=== PATIENT | male | born 1955 | race Caucasian/White ===

== ENCOUNTER 2018-05-23 14:50 | Inpatient (IN) | payer MEDICAID ==
[~2018-05-23] VITALS: Ht 182.9 cm; Wt 92.2 kg
[~2018-05-23 14:50] MED LIST: ATOR40TA78 PO; INSU100I18 SQ-INSULIN; INSU100I28 SQ-INSULIN; LISI-167 PO; METO10TA82 PO; PANT40TA3 PO; SUCR1ORA11 PO
[2018-05-23] MEDS ORDERED: SODIUM CHLORIDE 0.9% 1,000ML IVBOLUS ONE (15:00)
[2018-05-23 15:26] LABS: BASOPHILS # (AUTO) 0.04 x10^3/uL (0-0.1); BASOPHILS % (AUTO) 0 % (0-1); EOSINOPHILS # (AUTO) 0.09 x10^3/uL (0-0.4); EOSINOPHILS % (AUTO) 1 % (1-7); LYMPHOCYTES % (AUTO) 11 % (22-44); MD NO; MEAN CORPUSCULAR HEMOGLOBIN 31.1 pg (27.5-34.5); MEAN CORPUSCULAR HGB CONC 33.8 g/dL (33.2-36.2); MEAN CORPUSCULAR VOLUME 91.8 fL (81-97); MEAN PLATELET VOLUME 8.1 fL (7.4-10.4); MONOCYTES # (AUTO) 0.82 x10^3/uL (0.2-0.8); MONOCYTES % (AUTO) 7 % (2-9); NEUTROPHILS # (AUTO) 9.39 x10^3/uL (1.8-6.8); NEUTROPHILS % (AUTO) 81 % (42-75); PLATELET COUNT 255 x10^3/uL (130-400); RED BLOOD COUNT 4.55 x10^6/uL (4.38-5.82); RED CELL DISTRIBUTION WIDTH 13.9 % (9.4-14.8)
[2018-05-23 15:35] LABS: ALBUMIN 3.4 g/dL (3.4-5.0); ANION GAP 8 mmol/L (5-15); CHLORIDE 101 mmol/L (98-107); CREATININE 1.84 mg/dL (0.7-1.3)
[2018-05-23] MEDS ORDERED: INSULIN REGULAR 100 UNITS/ML, 3ML VIAL ONE (16:25)
[2018-05-23] MEDS ORDERED: AMPICILLIN/SULBACTAM 3 GM in SODIUM CHLORIDE 0.9% 100 ML IV ONE (16:30)
[2018-05-23] MEDS ORDERED: INSULIN REGULAR 100 UNITS/ML, 3ML VIAL IVPush ONE (16:30)
[2018-05-23] MEDS ORDERED: VANCOMYCIN PER PHARMACY MC PRN ×2 (16:30→17:30)
[2018-05-23] MEDS ORDERED: VANCOMYCIN 2,000 MG in SODIUM CHLORIDE 0.9% 500 ML IV ONE (16:30)
[2018-05-23] MEDS ORDERED: SODIUM CHLORIDE 0.9% 1,000 ML IV SCH (17:13)
[2018-05-23] MEDS ORDERED: DOCUSATE 100 MG CAPSULE PO PRN (17:30)
[2018-05-23] MEDS ORDERED: GLUCAGON 1 MG IM PRN (17:30)
[2018-05-23] MEDS ORDERED: hydrALAzine 20 MG/ML, 1ML IVPush PRN (17:30)
[2018-05-23] MEDS ORDERED: SODIUM CHLORIDE 0.9%, 500ML IVBOLUS ONE ×2 (17:30→19:00)
[2018-05-23] MEDS ORDERED: POLYETHYLENE GLYCOL 17 GM PACKET PO PRN (17:30)
[2018-05-23] MEDS ORDERED: ACETAMINOPHEN 325 MG TABLET PO PRN (17:30)
[2018-05-23] MEDS ORDERED: PHARMACY MAY ADJ FOR RENAL FX MC PRN (17:30)
[2018-05-23] MEDS ORDERED: DEXTROSE 50%, 50ML SYRINGE IVPush PRN (17:30)
[2018-05-23] MEDS ORDERED: morphine SULFATE 10 MG/ML, 1ML IVPush PRN (17:30)
[2018-05-23] MEDS: INSULIN LISPRO 100 UNITS/ML, PEN SQ-INSULIN SCH ×2 (17:30→21:34)
[2018-05-23] MEDS ORDERED: BISACODYL 10 MG SUPP PR PRN (17:30)
[2018-05-23] MEDS ORDERED: DEXTROSE 4 GM TAB.CHEW PO PRN (17:30)
[2018-05-23 17:59] LABS: INTERNATIONAL NORMALIZED RATIO 1.06 (0.93-1.1); PROTHROMBIN TIME 10.9 Seconds (9.6-11.5)
[2018-05-23 18:29] LABS: HCT (SEDRATE) 41.8 % (39.2-51.8)
[2018-05-23 18:30] LABS: HEMOGLOBIN A1C 10.4 % (4.2-6.3)
[2018-05-23] MEDS ORDERED: PHARMACOKINETIC CONSULTATION MC ONE (19:00)
[2018-05-23] MEDS ORDERED: PHARMACOKINETIC MONITORING MC PRN (19:00)
[2018-05-23 19:24] LABS: C-REACTIVE PROTEIN, QUANT 7.6 mg/dL (0.02-0.49); THYROID STIMULATING HORMONE 1.31 mIU/L (0.358-3.740)
[2018-05-23 19:40] VITALS: BP 162/97
[2018-05-23] MEDS ORDERED: SUCRALFATE 1 GM/10 ML UDC ONE (21:27)
[2018-05-23 21:32] LABS: CHLORIDE,URINE RANDOM 71 mmol/L; POTASSIUM,URINE RANDOM 33 mmol/L; SODIUM,URINE RANDOM 66 mmol/L
[2018-05-23] MEDS: FAMOTIDINE 20 MG/2 ML IVPush SCH (21:32)
[2018-05-23] MEDS: ATORVASTATIN 40 MG TABLET PO SCH (21:32)
[2018-05-23] MEDS: SODIUM CHLORIDE FLUSH 10ML SYR IVF SCH (21:32)
[2018-05-23] MEDS: INSULIN GLARGINE 100 UNITS/ML, PEN SQ-INSULIN SCH (21:34)
[2018-05-23] MEDS: SUCRALFATE 1 GM TABLET PO SCH (21:44)
[2018-05-23 22:05] LABS: MICROSCOPIC INDICATED
[2018-05-23 22:22] LABS: CULTURE INDICATED? NO
[2018-05-23] MEDS ORDERED: D5%-0.9% NACL 1,000 ML IV SCH (23:30)
[2018-05-23] MEDS: PIPERACILLIN/TAZO 2.25 GM in SODIUM CHLORIDE 0.9% 50 ML IV SCH ×2 (23:30→23:32)
[2018-05-24] VITALS (9 sets, daily range): BP systolic 147–174; BP diastolic 89–111
[2018-05-24 04:53] LABS: ALBUMIN 2.6 g/dL (3.4-5.0); ANION GAP 8 mmol/L (5-15); CALCIUM 8.1 mg/dL (8.5-10.1); CHLORIDE 109 mmol/L (98-107)
[2018-05-24 04:59] LABS: ALANINE AMINOTRANSFERASE 13 U/L (12-78); ALKALINE PHOSPHATASE 75 U/L (45-117); BASOPHILS # (AUTO) 0.04 x10^3/uL (0-0.1); BASOPHILS % (AUTO) 1 % (0-1); BILIRUBIN,TOTAL 0.6 mg/dL (0.2-1.0); CHOL/HDL RATIO 5.6; CHOLESTEROL, TOTAL 214 mg/dL (140-239); CREATININE 1.13 mg/dL (0.7-1.3); EOSINOPHILS # (AUTO) 0.21 x10^3/uL (0-0.4); EOSINOPHILS % (AUTO) 3 % (1-7); HDL CHOL % 18 % (26-37); HDL CHOLESTEROL (DIRECT) 38 mg/dL (40-60); LDL CHOLESTEROL,CALCULATED 155 mg/dL (54-169); LDL/HDL RATIO 4.1 (0.5-3.0); LYMPHOCYTES # (AUTO) 1.92 x10^3/uL (1-3.4); LYMPHOCYTES % (AUTO) 23 % (22-44); MD NO; MEAN CORPUSCULAR HEMOGLOBIN 30.5 pg (27.5-34.5); MEAN CORPUSCULAR HGB CONC 33.7 g/dL (33.2-36.2); MEAN CORPUSCULAR VOLUME 90.4 fL (81-97); MEAN PLATELET VOLUME 7.9 fL (7.4-10.4); MONOCYTES # (AUTO) 0.86 x10^3/uL (0.2-0.8); MONOCYTES % (AUTO) 10 % (2-9); NEUTROPHILS # (AUTO) 5.52 x10^3/uL (1.8-6.8); NEUTROPHILS % (AUTO) 65 % (42-75); PLATELET COUNT 224 x10^3/uL (130-400); RED BLOOD COUNT 4.15 x10^6/uL (4.38-5.82); RED CELL DISTRIBUTION WIDTH 13.5 % (9.4-14.8); TOTAL PROTEIN 6.5 g/dL (6.4-8.2); TRIGLYCERIDES 104 mg/dL (50-200); VLDL CHOLESTEROL 21 mg/dL (0-25)
[2018-05-24] MEDS: PIPERACILLIN/TAZO 2.25 GM in SODIUM CHLORIDE 0.9% 50 ML IV SCH (05:27)
[2018-05-24] MEDS ORDERED: SODIUM CHLORIDE 0.9% 1,000 ML IV SCH (07:00)
[2018-05-24] MEDS: FAMOTIDINE 20 MG/2 ML IVPush SCH ×2 (07:31→20:34)
[2018-05-24] MEDS: NEUTRA PHOS K 250 MG TABLET PO SCH ×2 (07:32→20:34)
[2018-05-24] MEDS: SUCRALFATE 1 GM TABLET PO SCH ×4 (07:32→20:34)
[2018-05-24] MEDS: INSULIN GLARGINE 100 UNITS/ML, PEN SQ-INSULIN SCH ×2 (07:34→20:52)
[2018-05-24] MEDS: INSULIN LISPRO 100 UNITS/ML, PEN SQ-INSULIN SCH ×4 (07:35→20:51)
[2018-05-24] MEDS: SODIUM CHLORIDE FLUSH 10ML SYR IVF SCH ×2 (07:35→20:35)
[2018-05-24] MEDS: SODIUM CHLORIDE 0.9% 1,000 ML IV SCH ×2 (07:40→20:35)
[2018-05-24] MEDS: LABETALOL 5MG/ML, 20ML IVPush PRN ×2 (09:31→12:44)
[2018-05-24 10:28] LABS: ANION GAP 6 mmol/L (5-15); CALCIUM 8.1 mg/dL (8.5-10.1); CHLORIDE 106 mmol/L (98-107)
[2018-05-24 10:29] LABS: CREATININE 1.12 mg/dL (0.7-1.3)
[2018-05-24] MEDS: PIPERACILLIN/TAZO/PMX 3.375GM 50 ML IV SCH ×3 (10:51→23:14)
[2018-05-24] MEDS ORDERED: LOSARTAN 25MG TABLET ONE (10:55)
[2018-05-24] MEDS: LOSARTAN 25MG TABLET PO SCH (10:56)
[2018-05-24] MEDS: VANCOMYCIN 1,900 MG in SODIUM CHLORIDE 0.9% 250 ML IV SCH (13:25)
[2018-05-24] MEDS: LACTOBACILLUS CHEW TABLET PO SCH ×2 (16:05→20:34)
[2018-05-24] MEDS ORDERED: VANCOMYCIN 2,000 MG in SODIUM CHLORIDE 0.9% 500 ML IV SCH (18:30)
[2018-05-24] MEDS: ATORVASTATIN 40 MG TABLET PO SCH (20:34)
[2018-05-24] MEDS: PANTOPROZOLE 40MG TABLET PO SCH (20:36)
[2018-05-25] VITALS (8 sets, daily range): BP systolic 130–176; BP diastolic 78–109
[2018-05-25] MEDS: PIPERACILLIN/TAZO/PMX 3.375GM 50 ML IV SCH ×4 (04:40→23:06)
[2018-05-25] MEDS: SODIUM CHLORIDE 0.9% 1,000 ML IV SCH ×2 (04:41→12:02)
[2018-05-25 05:21] LABS: ALBUMIN 2.7 g/dL (3.4-5.0); ANION GAP 10 mmol/L (5-15); BASOPHILS # (AUTO) 0.06 x10^3/uL (0-0.1); BASOPHILS % (AUTO) 1 % (0-1); CALCIUM 7.8 mg/dL (8.5-10.1); CHLORIDE 106 mmol/L (98-107); EOSINOPHILS # (AUTO) 0.28 x10^3/uL (0-0.4); EOSINOPHILS % (AUTO) 3 % (1-7); LYMPHOCYTES # (AUTO) 1.67 x10^3/uL (1-3.4); LYMPHOCYTES % (AUTO) 19 % (22-44); MD NO; MEAN CORPUSCULAR HEMOGLOBIN 30.4 pg (27.5-34.5); MEAN CORPUSCULAR HGB CONC 33.6 g/dL (33.2-36.2); MEAN CORPUSCULAR VOLUME 90.4 fL (81-97); MEAN PLATELET VOLUME 7.7 fL (7.4-10.4); MONOCYTES # (AUTO) 0.94 x10^3/uL (0.2-0.8); MONOCYTES % (AUTO) 10 % (2-9); NEUTROPHILS # (AUTO) 6.09 x10^3/uL (1.8-6.8); NEUTROPHILS % (AUTO) 67 % (42-75); PLATELET COUNT 234 x10^3/uL (130-400); RED BLOOD COUNT 4.21 x10^6/uL (4.38-5.82); RED CELL DISTRIBUTION WIDTH 13.5 % (9.4-14.8)
[2018-05-25 05:23] LABS: CREATININE 1.27 mg/dL (0.7-1.3)
[2018-05-25] MEDS: VANCOMYCIN 1,900 MG in SODIUM CHLORIDE 0.9% 250 ML IV SCH (06:35)
[2018-05-25] MEDS: INSULIN LISPRO 100 UNITS/ML, PEN SQ-INSULIN SCH ×4 (07:49→20:49)
[2018-05-25] MEDS: SUCRALFATE 1 GM TABLET PO SCH ×4 (07:51→20:29)
[2018-05-25] MEDS: LACTOBACILLUS CHEW TABLET PO SCH ×3 (09:04→20:29)
[2018-05-25] MEDS: LABETALOL 5MG/ML, 20ML IVPush PRN (09:05)
[2018-05-25] MEDS: LOSARTAN 25MG TABLET PO SCH (09:05)
[2018-05-25] MEDS: PANTOPROZOLE 40MG TABLET PO SCH ×2 (09:05→20:29)
[2018-05-25] MEDS: INSULIN GLARGINE 100 UNITS/ML, PEN SQ-INSULIN SCH ×2 (09:08→20:48)
[2018-05-25] MEDS: SODIUM CHLORIDE FLUSH 10ML SYR IVF SCH ×2 (09:10→21:00)
[2018-05-25] MEDS: FAMOTIDINE 20 MG/2 ML IVPush SCH (09:43)
[2018-05-25] MEDS: NEUTRA PHOS K 250 MG TABLET PO SCH ×2 (09:43→20:29)
[2018-05-25] MEDS ORDERED: hydrALAzine 20 MG/ML, 1ML IVPush PRN (12:00)
[2018-05-25] MEDS: AMLODIPINE 5 MG TABLET PO SCH ×2 (13:59→20:30)
[2018-05-25] MEDS: ATORVASTATIN 40 MG TABLET PO SCH (20:29)
[2018-05-25] MEDS ORDERED: FAMOTIDINE 20 MG TABLET PO SCH (21:00)
[2018-05-26] VITALS (7 sets, daily range): BP systolic 128–180; BP diastolic 71–111
[2018-05-26] MEDS: VANCOMYCIN 1,900 MG in SODIUM CHLORIDE 0.9% 250 ML IV SCH (00:37)
[2018-05-26] MEDS: SODIUM CHLORIDE 0.9% 1,000 ML IV SCH ×3 (00:37→17:04)
[2018-05-26] MEDS: PIPERACILLIN/TAZO/PMX 3.375GM 50 ML IV SCH (05:03)
[2018-05-26] MEDS: SUCRALFATE 1 GM TABLET PO SCH ×4 (06:36→20:34)
[2018-05-26] MEDS: INSULIN LISPRO 100 UNITS/ML, PEN SQ-INSULIN SCH ×4 (07:45→20:54)
[2018-05-26] MEDS: LABETALOL 5MG/ML, 20ML IVPush PRN ×2 (07:58→12:41)
[2018-05-26] MEDS ORDERED: LOSARTAN 25MG TABLET PO SCH (09:00)
[2018-05-26] MEDS: LACTOBACILLUS CHEW TABLET PO SCH ×3 (09:26→20:34)
[2018-05-26] MEDS: NEUTRA PHOS K 250 MG TABLET PO SCH ×2 (09:26→20:34)
[2018-05-26] MEDS: SODIUM CHLORIDE FLUSH 10ML SYR IVF SCH ×2 (09:26→20:35)
[2018-05-26] MEDS: PANTOPROZOLE 40MG TABLET PO SCH ×2 (09:27→20:34)
[2018-05-26] MEDS: AMLODIPINE 5 MG TABLET PO SCH ×2 (09:31→20:34)
[2018-05-26] MEDS: INSULIN GLARGINE 100 UNITS/ML, PEN SQ-INSULIN SCH ×2 (09:35→20:55)
[2018-05-26] MEDS: CHLORTHALIDONE 25 MG TABLET PO SCH (11:21)
[2018-05-26] MEDS: CEFTRIAXONE 2 GM in SODIUM CHLORIDE 0.9% 50 ML IV SCH (12:17)
[2018-05-26] MEDS: GUAIFENESIN/DM 200-20MG, 10ML UDC PO PRN (15:09)
[2018-05-26] MEDS: ATORVASTATIN 40 MG TABLET PO SCH (20:34)
[2018-05-27 01:36] VITALS: BP 142/83
[2018-05-27] MEDS: SODIUM CHLORIDE 0.9% 1,000 ML IV SCH ×2 (02:27→08:07)
[2018-05-27 04:59] LABS: ALBUMIN 2.5 g/dL (3.4-5.0); ANION GAP 9 mmol/L (5-15); CALCIUM 8.2 mg/dL (8.5-10.1); CHLORIDE 104 mmol/L (98-107)
[2018-05-27 05:05] LABS: ALANINE AMINOTRANSFERASE 11 U/L (12-78); ALKALINE PHOSPHATASE 99 U/L (45-117); BILIRUBIN,TOTAL 0.8 mg/dL (0.2-1.0); CREATININE 1.07 mg/dL (0.7-1.3); TOTAL PROTEIN 6.7 g/dL (6.4-8.2)
[2018-05-27 05:11] LABS: BASOPHILS # (AUTO) 0.05 x10^3/uL (0-0.1); BASOPHILS % (AUTO) 1 % (0-1); EOSINOPHILS # (AUTO) 0.22 x10^3/uL (0-0.4); EOSINOPHILS % (AUTO) 2 % (1-7); LYMPHOCYTES # (AUTO) 1.44 x10^3/uL (1-3.4); LYMPHOCYTES % (AUTO) 13 % (22-44); MD NO; MEAN CORPUSCULAR HEMOGLOBIN 30.9 pg (27.5-34.5); MEAN CORPUSCULAR HGB CONC 33.8 g/dL (33.2-36.2); MEAN CORPUSCULAR VOLUME 91.4 fL (81-97); MEAN PLATELET VOLUME 7.8 fL (7.4-10.4); MONOCYTES # (AUTO) 1.09 x10^3/uL (0.2-0.8); MONOCYTES % (AUTO) 10 % (2-9); NEUTROPHILS # (AUTO) 7.98 x10^3/uL (1.8-6.8); NEUTROPHILS % (AUTO) 74 % (42-75); PLATELET COUNT 251 x10^3/uL (130-400); RED BLOOD COUNT 4.15 x10^6/uL (4.38-5.82); RED CELL DISTRIBUTION WIDTH 13.9 % (9.4-14.8)
[2018-05-27 07:50] VITALS: BP 146/100
[2018-05-27] MEDS: LACTOBACILLUS CHEW TABLET PO SCH ×3 (08:04→20:40)
[2018-05-27] MEDS: NEUTRA PHOS K 250 MG TABLET PO SCH ×2 (08:04→20:40)
[2018-05-27] MEDS: INSULIN LISPRO 100 UNITS/ML, PEN SQ-INSULIN SCH ×4 (08:04→20:42)
[2018-05-27] MEDS: SUCRALFATE 1 GM TABLET PO SCH ×4 (08:05→20:40)
[2018-05-27] MEDS: LOSARTAN 50MG TABLET PO SCH (08:05)
[2018-05-27] MEDS: CHLORTHALIDONE 25 MG TABLET PO SCH (08:05)
[2018-05-27] MEDS: AMLODIPINE 5 MG TABLET PO SCH ×2 (08:05→20:41)
[2018-05-27] MEDS: PANTOPROZOLE 40MG TABLET PO SCH ×2 (08:06→20:41)
[2018-05-27] MEDS: SODIUM CHLORIDE FLUSH 10ML SYR IVF SCH ×2 (08:07→21:00)
[2018-05-27] MEDS: INSULIN GLARGINE 100 UNITS/ML, PEN SQ-INSULIN SCH ×2 (09:24→20:41)
[2018-05-27] MEDS: CEFTRIAXONE 2 GM in SODIUM CHLORIDE 0.9% 50 ML IV SCH (11:02)
[2018-05-27 13:21] VITALS: BP 112/69
[2018-05-27 19:37] VITALS: BP 146/85
[2018-05-27] MEDS: ATORVASTATIN 40 MG TABLET PO SCH (20:40)
[2018-05-28] MEDS: SODIUM CHLORIDE 0.9% 1,000 ML IV SCH ×2 (00:13→08:12)
[2018-05-28 02:48] VITALS: BP 156/96
[2018-05-28] MEDS: SUCRALFATE 1 GM TABLET PO SCH ×4 (06:36→21:09)
[2018-05-28 08:22] VITALS: BP 145/97
[2018-05-28] MEDS: SODIUM CHLORIDE FLUSH 10ML SYR IVF SCH ×2 (09:00→21:10)
[2018-05-28] MEDS: INSULIN LISPRO 100 UNITS/ML, PEN SQ-INSULIN SCH ×4 (09:11→21:24)
[2018-05-28] MEDS: LACTOBACILLUS CHEW TABLET PO SCH ×3 (09:12→21:09)
[2018-05-28] MEDS: AMLODIPINE 5 MG TABLET PO SCH ×2 (09:12→21:09)
[2018-05-28] MEDS: NEUTRA PHOS K 250 MG TABLET PO SCH ×2 (09:12→21:09)
[2018-05-28] MEDS: PANTOPROZOLE 40MG TABLET PO SCH ×2 (09:12→21:09)
[2018-05-28] MEDS: CHLORTHALIDONE 25 MG TABLET PO SCH (09:13)
[2018-05-28] MEDS: LOSARTAN 50MG TABLET PO SCH (09:13)
[2018-05-28] MEDS: INSULIN GLARGINE 100 UNITS/ML, PEN SQ-INSULIN SCH ×2 (09:34→21:24)
[2018-05-28] MEDS: CEFTRIAXONE 2 GM in SODIUM CHLORIDE 0.9% 50 ML IV SCH (11:58)
[2018-05-28] MEDS: GUAIFENESIN 200 MG TABLET PO SCH ×3 (12:01→21:09)
[2018-05-28 14:49] VITALS: BP 136/89
[2018-05-28 20:20] VITALS: BP 151/94
[2018-05-28] MEDS: ATORVASTATIN 40 MG TABLET PO SCH (21:10)
[2018-05-29 02:30] VITALS: BP 128/86
[2018-05-29 04:52] LABS: ALANINE AMINOTRANSFERASE 13 U/L (12-78); ALBUMIN 2.6 g/dL (3.4-5.0); ANION GAP 8 mmol/L (5-15); CALCIUM 9.4 mg/dL (8.5-10.1); CHLORIDE 101 mmol/L (98-107); CREATININE 1.32 mg/dL (0.7-1.3)
[2018-05-29 04:59] LABS: HCT (SEDRATE) 41.5 % (39.2-51.8)
[2018-05-29 05:03] LABS: ALKALINE PHOSPHATASE 93 U/L (45-117); BILIRUBIN,TOTAL 0.7 mg/dL (0.2-1.0); TOTAL PROTEIN 7.4 g/dL (6.4-8.2)
[2018-05-29 05:04] LABS: BASOPHILS # (AUTO) 0.04 x10^3/uL (0-0.1); BASOPHILS % (AUTO) 1 % (0-1); EOSINOPHILS # (AUTO) 0.32 x10^3/uL (0-0.4); EOSINOPHILS % (AUTO) 4 % (1-7); LYMPHOCYTES # (AUTO) 1.95 x10^3/uL (1-3.4); LYMPHOCYTES % (AUTO) 23 % (22-44); MD NO; MEAN CORPUSCULAR HEMOGLOBIN 30.6 pg (27.5-34.5); MEAN CORPUSCULAR HGB CONC 33.6 g/dL (33.2-36.2); MEAN CORPUSCULAR VOLUME 91.1 fL (81-97); MEAN PLATELET VOLUME 7.7 fL (7.4-10.4); MONOCYTES # (AUTO) 0.99 x10^3/uL (0.2-0.8); MONOCYTES % (AUTO) 12 % (2-9); NEUTROPHILS # (AUTO) 5.18 x10^3/uL (1.8-6.8); NEUTROPHILS % (AUTO) 61 % (42-75); PLATELET COUNT 281 x10^3/uL (130-400); RED CELL DISTRIBUTION WIDTH 13.6 % (9.4-14.8)
[2018-05-29] MEDS: SUCRALFATE 1 GM TABLET PO SCH ×4 (06:33→21:06)
[2018-05-29] MEDS: GUAIFENESIN 200 MG TABLET PO SCH ×4 (06:33→21:20)
[2018-05-29] MEDS ORDERED: METRONIDAZOLE PMX 500MG/100ML 100 ML IV SCH (07:00)
[2018-05-29 08:18] VITALS: BP 132/86
[2018-05-29] MEDS: LACTOBACILLUS CHEW TABLET PO SCH ×3 (09:10→21:20)
[2018-05-29] MEDS: NEUTRA PHOS K 250 MG TABLET PO SCH (09:10)
[2018-05-29] MEDS: PANTOPROZOLE 40MG TABLET PO SCH ×2 (09:10→21:05)
[2018-05-29] MEDS: CHLORTHALIDONE 25 MG TABLET PO SCH (09:10)
[2018-05-29] MEDS: AMLODIPINE 5 MG TABLET PO SCH ×2 (09:10→21:05)
[2018-05-29] MEDS: LOSARTAN 50MG TABLET PO SCH (09:11)
[2018-05-29] MEDS: INSULIN GLARGINE 100 UNITS/ML, PEN SQ-INSULIN SCH ×2 (09:16→21:13)
[2018-05-29] MEDS: INSULIN LISPRO 100 UNITS/ML, PEN SQ-INSULIN SCH ×4 (09:17→21:14)
[2018-05-29] MEDS: SODIUM CHLORIDE FLUSH 10ML SYR IVF SCH ×2 (11:27→21:05)
[2018-05-29] MEDS: ERTAPENEM 1 GM in SODIUM CHLORIDE 0.9% 50 ML IV SCH (12:42)
[2018-05-29] MEDS: ATORVASTATIN 40 MG TABLET PO SCH (21:05)
[2018-05-29 21:09] VITALS: BP 122/78
[2018-05-30 01:49] VITALS: BP 103/68
[2018-05-30 07:20] VITALS: BP 131/84
[2018-05-30] MEDS: AMLODIPINE 5 MG TABLET PO SCH ×2 (07:54→20:22)
[2018-05-30] MEDS: GUAIFENESIN 200 MG TABLET PO SCH ×4 (07:54→20:22)
[2018-05-30] MEDS: SUCRALFATE 1 GM TABLET PO SCH ×4 (07:54→20:33)
[2018-05-30] MEDS: LACTOBACILLUS CHEW TABLET PO SCH ×3 (07:54→20:21)
[2018-05-30] MEDS: PANTOPROZOLE 40MG TABLET PO SCH ×2 (07:54→20:22)
[2018-05-30] MEDS: INSULIN LISPRO 100 UNITS/ML, PEN SQ-INSULIN SCH ×4 (07:55→20:31)
[2018-05-30] MEDS: LOSARTAN 50MG TABLET PO SCH (07:55)
[2018-05-30] MEDS: INSULIN GLARGINE 100 UNITS/ML, PEN SQ-INSULIN SCH ×2 (07:55→20:32)
[2018-05-30] MEDS: SODIUM CHLORIDE FLUSH 10ML SYR IVF SCH ×2 (07:56→20:34)
[2018-05-30] MEDS: CHLORTHALIDONE 25 MG TABLET PO SCH (07:56)
[2018-05-30] MEDS: ERTAPENEM 1 GM in SODIUM CHLORIDE 0.9% 50 ML IV SCH (10:40)
[2018-05-30 13:21] VITALS: BP 90/59
[2018-05-30] MEDS: ATORVASTATIN 40 MG TABLET PO SCH (20:22)
[2018-05-30 21:33] VITALS: BP 123/83
[2018-05-30] MEDS: GUAIFENESIN/DM 200-20MG, 10ML UDC PO PRN (22:45)
[2018-05-31 02:59] VITALS: BP 124/83
[2018-05-31 05:08] LABS: ALBUMIN 2.6 g/dL (3.4-5.0); CALCIUM 9.2 mg/dL (8.5-10.1); CHLORIDE 101 mmol/L (98-107)
[2018-05-31 05:12] LABS: ALANINE AMINOTRANSFERASE 14 U/L (12-78); ALKALINE PHOSPHATASE 86 U/L (45-117); ANION GAP 9 mmol/L (5-15); BILIRUBIN,TOTAL 0.3 mg/dL (0.2-1.0); CREATININE 1.38 mg/dL (0.7-1.3); TOTAL PROTEIN 7.1 g/dL (6.4-8.2)
[2018-05-31 05:15] LABS: BASOPHILS # (AUTO) 0.06 x10^3/uL (0-0.1); BASOPHILS % (AUTO) 1 % (0-1); EOSINOPHILS # (AUTO) 0.34 x10^3/uL (0-0.4); EOSINOPHILS % (AUTO) 5 % (1-7); LYMPHOCYTES # (AUTO) 2.05 x10^3/uL (1-3.4); LYMPHOCYTES % (AUTO) 28 % (22-44); MD NO; MEAN CORPUSCULAR HGB CONC 33.4 g/dL (33.2-36.2); MEAN CORPUSCULAR VOLUME 89.9 fL (81-97); MEAN PLATELET VOLUME 8.2 fL (7.4-10.4); MONOCYTES # (AUTO) 0.85 x10^3/uL (0.2-0.8); MONOCYTES % (AUTO) 12 % (2-9); NEUTROPHILS % (AUTO) 54 % (42-75); PLATELET COUNT 129 x10^3/uL (130-400); RED BLOOD COUNT 4.68 x10^6/uL (4.38-5.82); RED CELL DISTRIBUTION WIDTH 13.5 % (9.4-14.8)
[2018-05-31] MEDS: GUAIFENESIN 200 MG TABLET PO SCH ×2 (06:33→11:52)
[2018-05-31 07:31] VITALS: BP 133/87
[2018-05-31] MEDS: INSULIN GLARGINE 100 UNITS/ML, PEN SQ-INSULIN SCH ×2 (08:35→20:38)
[2018-05-31] MEDS: INSULIN LISPRO 100 UNITS/ML, PEN SQ-INSULIN SCH ×4 (08:35→20:38)
[2018-05-31] MEDS: SUCRALFATE 1 GM TABLET PO SCH ×2 (08:36→11:52)
[2018-05-31] MEDS: AMLODIPINE 5 MG TABLET PO SCH ×2 (08:36→20:27)
[2018-05-31] MEDS: LOSARTAN 50MG TABLET PO SCH (08:36)
[2018-05-31] MEDS: PANTOPROZOLE 40MG TABLET PO SCH (08:36)
[2018-05-31] MEDS: SODIUM CHLORIDE FLUSH 10ML SYR IVF SCH ×2 (08:37→20:41)
[2018-05-31] MEDS: CHLORTHALIDONE 25 MG TABLET PO SCH (08:37)
[2018-05-31] MEDS: LACTOBACILLUS CHEW TABLET PO SCH ×3 (08:37→20:27)
[2018-05-31] MEDS: ERTAPENEM 1 GM in SODIUM CHLORIDE 0.9% 50 ML IV SCH (10:19)
[2018-05-31 12:50] VITALS: BP 112/76
[2018-05-31] MEDS: POTASSIUM CHLORIDE 20 MEQ TAB.ER.PRT PO SCH (16:37)
[2018-05-31] MEDS: FAMOTIDINE 20 MG TABLET PO SCH (20:27)
[2018-05-31] MEDS: ATORVASTATIN 40 MG TABLET PO SCH (20:28)
[2018-05-31 20:41] VITALS: BP 130/91
[2018-05-31 23:51] VITALS: BP 91/58
[2018-06-01 05:02] LABS: ANION GAP 10 mmol/L (5-15); CALCIUM 9.1 mg/dL (8.5-10.1); CHLORIDE 102 mmol/L (98-107); CREATININE 1.56 mg/dL (0.7-1.3)
[2018-06-01] MEDS: INSULIN LISPRO 100 UNITS/ML, PEN SQ-INSULIN SCH ×4 (07:34→21:23)
[2018-06-01 07:38] VITALS: BP 121/79
[2018-06-01] MEDS: LOSARTAN 50MG TABLET PO SCH (10:16)
[2018-06-01] MEDS: SODIUM CHLORIDE FLUSH 10ML SYR IVF SCH ×2 (10:16→21:22)
[2018-06-01] MEDS: LACTOBACILLUS CHEW TABLET PO SCH ×3 (10:17→21:22)
[2018-06-01] MEDS: CHLORTHALIDONE 25 MG TABLET PO SCH (10:17)
[2018-06-01] MEDS: POTASSIUM CHLORIDE 20 MEQ TAB.ER.PRT PO SCH ×2 (10:17→16:43)
[2018-06-01] MEDS: AMLODIPINE 5 MG TABLET PO SCH ×2 (10:17→21:22)
[2018-06-01] MEDS: INSULIN GLARGINE 100 UNITS/ML, PEN SQ-INSULIN SCH ×2 (10:54→21:31)
[2018-06-01] MEDS: ERTAPENEM 1 GM in SODIUM CHLORIDE 0.9% 50 ML IV SCH (10:55)
[2018-06-01 13:30] VITALS: BP 122/62
[2018-06-01] MEDS: HEPARIN 5,000 UNITS/ML, 1ML SQ SCH ×2 (15:09→23:27)
[2018-06-01 19:35] VITALS: BP 120/84
[2018-06-01] MEDS: FAMOTIDINE 20 MG TABLET PO SCH (21:22)
[2018-06-01] MEDS: ATORVASTATIN 40 MG TABLET PO SCH (21:22)
[2018-06-02 01:11] VITALS: BP 103/63
[2018-06-02 04:45] LABS: ANION GAP 9 mmol/L (5-15); CALCIUM 9.4 mg/dL (8.5-10.1); CHLORIDE 103 mmol/L (98-107); CREATININE 1.28 mg/dL (0.7-1.3)
[2018-06-02 07:04] VITALS: BP 111/75
[2018-06-02] MEDS: HEPARIN 5,000 UNITS/ML, 1ML SQ SCH ×3 (07:43→23:47)
[2018-06-02] MEDS: LACTOBACILLUS CHEW TABLET PO SCH ×3 (07:44→20:40)
[2018-06-02] MEDS: LOSARTAN 50MG TABLET PO SCH (07:44)
[2018-06-02] MEDS: CHLORTHALIDONE 25 MG TABLET PO SCH (07:44)
[2018-06-02] MEDS: METOPROLOL TARTRATE 25 MG TABLET PO SCH ×2 (07:45→18:21)
[2018-06-02] MEDS: INSULIN LISPRO 100 UNITS/ML, PEN SQ-INSULIN SCH ×4 (07:48→20:45)
[2018-06-02] MEDS: SODIUM CHLORIDE FLUSH 10ML SYR IVF SCH ×2 (10:20→20:45)
[2018-06-02] MEDS: ERTAPENEM 1 GM in SODIUM CHLORIDE 0.9% 50 ML IV SCH (10:20)
[2018-06-02] MEDS: INSULIN GLARGINE 100 UNITS/ML, PEN SQ-INSULIN SCH ×2 (11:06→20:45)
[2018-06-02 13:11] VITALS: BP 95/63
[2018-06-02 18:23] VITALS: BP 115/77
[2018-06-02 20:09] VITALS: BP 101/68
[2018-06-02] MEDS: FAMOTIDINE 20 MG TABLET PO SCH (20:40)
[2018-06-02] MEDS: ATORVASTATIN 40 MG TABLET PO SCH (20:40)
[2018-06-03] VITALS (8 sets, daily range): BP systolic 93–112; BP diastolic 59–77
[2018-06-03] MEDS: METOPROLOL TARTRATE 25 MG TABLET PO SCH ×2 (05:17→17:47)
[2018-06-03 06:15] LABS: MEAN CORPUSCULAR HEMOGLOBIN 30.6 pg (27.5-34.5); MEAN CORPUSCULAR HGB CONC 33.9 g/dL (33.2-36.2); MEAN CORPUSCULAR VOLUME 90.3 fL (81-97); RED BLOOD COUNT 4.63 x10^6/uL (4.38-5.82); RED CELL DISTRIBUTION WIDTH 13.6 % (9.4-14.8)
[2018-06-03 06:16] LABS: PLATELET COUNT 9 x10^3/uL (130-400)
[2018-06-03 06:17] LABS: BASOPHILS # (AUTO) 0.03 x10^3/uL (0-0.1); BASOPHILS % (AUTO) 0 % (0-1); EOSINOPHILS # (AUTO) 0.22 x10^3/uL (0-0.4); EOSINOPHILS % (AUTO) 2 % (1-7); LYMPHOCYTES # (AUTO) 2.15 x10^3/uL (1-3.4); LYMPHOCYTES % (AUTO) 23 % (22-44); MD SCAN; MONOCYTES % (AUTO) 8 % (2-9); NEUTROPHILS # (AUTO) 6.13 x10^3/uL (1.8-6.8); NEUTROPHILS % (AUTO) 66 % (42-75)
[2018-06-03] MEDS: INSULIN LISPRO 100 UNITS/ML, PEN SQ-INSULIN SCH ×4 (08:08→20:41)
[2018-06-03] MEDS: INSULIN GLARGINE 100 UNITS/ML, PEN SQ-INSULIN SCH ×2 (08:08→20:41)
[2018-06-03] MEDS: CHLORTHALIDONE 25 MG TABLET PO SCH (08:09)
[2018-06-03] MEDS: LACTOBACILLUS CHEW TABLET PO SCH ×3 (08:09→20:31)
[2018-06-03] MEDS: SODIUM CHLORIDE FLUSH 10ML SYR IVF SCH ×2 (08:10→20:30)
[2018-06-03] MEDS: LOSARTAN 50MG TABLET PO SCH (08:10)
[2018-06-03] MEDS: ERTAPENEM 1 GM in SODIUM CHLORIDE 0.9% 50 ML IV SCH (08:13)
[2018-06-03 12:31] LABS: MEAN CORPUSCULAR HEMOGLOBIN 30.4 pg (27.5-34.5); MEAN CORPUSCULAR HGB CONC 33.7 g/dL (33.2-36.2); MEAN CORPUSCULAR VOLUME 90.2 fL (81-97); MEAN PLATELET VOLUME 8.5 fL (7.4-10.4); PLATELET COUNT 37 x10^3/uL (130-400); RED BLOOD COUNT 4.66 x10^6/uL (4.38-5.82); RED CELL DISTRIBUTION WIDTH 13.8 % (9.4-14.8)
[2018-06-03 12:34] LABS: BASOPHILS # (AUTO) 0.05 x10^3/uL (0-0.1); BASOPHILS % (AUTO) 1 % (0-1); EOSINOPHILS # (AUTO) 0.27 x10^3/uL (0-0.4); EOSINOPHILS % (AUTO) 3 % (1-7); LYMPHOCYTES # (AUTO) 2.03 x10^3/uL (1-3.4); LYMPHOCYTES % (AUTO) 24 % (22-44); MD SCAN; MONOCYTES # (AUTO) 0.79 x10^3/uL (0.2-0.8); MONOCYTES % (AUTO) 10 % (2-9); NEUTROPHILS # (AUTO) 5.18 x10^3/uL (1.8-6.8); NEUTROPHILS % (AUTO) 62 % (42-75)
[2018-06-03] MEDS ORDERED: ERTAPENEM 1 GM in SODIUM CHLORIDE 0.9% 50 ML IV SCH (15:30)
[2018-06-03 15:57] LABS: D-DIMER (DIC) 2.31 ug/mlFEU (0.00-0.52); FIBRINOGEN 426 mg/dL (200-340); PROTIME 10.9 Seconds (9.6-11.5); PTT 28 Seconds (25-31)
[2018-06-03 16:10] LABS: HIT RESULT NEGATIVE (NEGATIVE)
[2018-06-03 16:12] LABS: PLATELET (DIC) 38 x10^3/uL (130-400)
[2018-06-03] MEDS: ATORVASTATIN 40 MG TABLET PO SCH (20:32)
[2018-06-03] MEDS: FAMOTIDINE 20 MG TABLET PO SCH (20:32)
[2018-06-04 01:55] VITALS: BP 106/73
[2018-06-04] MEDS: METOPROLOL TARTRATE 25 MG TABLET PO SCH ×2 (05:44→17:54)
[2018-06-04 05:59] LABS: MEAN CORPUSCULAR HEMOGLOBIN 30.3 pg (27.5-34.5); MEAN CORPUSCULAR HGB CONC 33.8 g/dL (33.2-36.2); MEAN CORPUSCULAR VOLUME 89.7 fL (81-97); RED BLOOD COUNT 4.36 x10^6/uL (4.38-5.82); RED CELL DISTRIBUTION WIDTH 13.8 % (9.4-14.8)
[2018-06-04 06:07] LABS: ALBUMIN 2.8 g/dL (3.4-5.0); ANION GAP 9 mmol/L (5-15); CALCIUM 9.3 mg/dL (8.5-10.1); CHLORIDE 101 mmol/L (98-107)
[2018-06-04 06:10] LABS: ALANINE AMINOTRANSFERASE 24 U/L (12-78); ALKALINE PHOSPHATASE 80 U/L (45-117); BILIRUBIN,TOTAL 0.4 mg/dL (0.2-1.0); CREATININE 1.44 mg/dL (0.7-1.3); TOTAL PROTEIN 7.1 g/dL (6.4-8.2)
[2018-06-04 06:14] LABS: MEAN PLATELET VOLUME 9.6 fL (7.4-10.4)
[2018-06-04 06:15] LABS: BASOPHILS # (AUTO) 0.04 x10^3/uL (0-0.1); BASOPHILS % (AUTO) 1 % (0-1); EOSINOPHILS # (AUTO) 0.36 x10^3/uL (0-0.4); EOSINOPHILS % (AUTO) 5 % (1-7); LYMPHOCYTES # (AUTO) 2.22 x10^3/uL (1-3.4); LYMPHOCYTES % (AUTO) 28 % (22-44); MD SCAN; MONOCYTES # (AUTO) 0.73 x10^3/uL (0.2-0.8); MONOCYTES % (AUTO) 9 % (2-9); NEUTROPHILS # (AUTO) 4.73 x10^3/uL (1.8-6.8); NEUTROPHILS % (AUTO) 59 % (42-75); PLATELET COUNT 23 x10^3/uL (130-400)
[2018-06-04] MEDS: SODIUM CHLORIDE 0.9% 1,000 ML IV SCH ×3 (08:09→19:40)
[2018-06-04] MEDS: INSULIN GLARGINE 100 UNITS/ML, PEN SQ-INSULIN SCH ×2 (08:13→20:45)
[2018-06-04] MEDS: INSULIN LISPRO 100 UNITS/ML, PEN SQ-INSULIN SCH ×4 (08:14→20:46)
[2018-06-04] MEDS: SODIUM CHLORIDE FLUSH 10ML SYR IVF SCH ×2 (08:16→20:30)
[2018-06-04] MEDS: LOSARTAN 50MG TABLET PO SCH (08:16)
[2018-06-04] MEDS: CHLORTHALIDONE 25 MG TABLET PO SCH (08:17)
[2018-06-04] MEDS: LACTOBACILLUS CHEW TABLET PO SCH ×3 (08:17→20:29)
[2018-06-04 08:29] VITALS: BP 103/69
[2018-06-04 13:20] VITALS: BP 110/68
[2018-06-04] MEDS: metroNIDAZOLE 500 MG TABLET PO SCH ×2 (13:22→20:29)
[2018-06-04] MEDS: CEFTRIAXONE 2 GM in SODIUM CHLORIDE 0.9% 50 ML IV SCH (13:42)
[2018-06-04] MEDS ORDERED: CATHFLO-ALTEPLASE 2 MG/2 ML CATHFLUSH ONE ×2 (14:00→16:30)
[2018-06-04 18:27] LABS: BASOPHILS # (AUTO) 0.06 x10^3/uL (0-0.1); BASOPHILS % (AUTO) 1 % (0-1); EOSINOPHILS % (AUTO) 4 % (1-7); LYMPHOCYTES # (AUTO) 2.38 x10^3/uL (1-3.4); LYMPHOCYTES % (AUTO) 29 % (22-44); MD SCAN; MEAN CORPUSCULAR HEMOGLOBIN 30.4 pg (27.5-34.5); MEAN CORPUSCULAR HGB CONC 33.7 g/dL (33.2-36.2); MEAN CORPUSCULAR VOLUME 90.4 fL (81-97); MEAN PLATELET VOLUME 10.8 fL (7.4-10.4); MONOCYTES # (AUTO) 0.75 x10^3/uL (0.2-0.8); MONOCYTES % (AUTO) 9 % (2-9); NEUTROPHILS # (AUTO) 4.81 x10^3/uL (1.8-6.8); NEUTROPHILS % (AUTO) 58 % (42-75); RED BLOOD COUNT 4.32 x10^6/uL (4.38-5.82); RED CELL DISTRIBUTION WIDTH 13.6 % (9.4-14.8)
[2018-06-04 18:37] LABS: PLATELET COUNT 19 x10^3/uL (130-400)
[2018-06-04 20:18] VITALS: BP 122/77
[2018-06-04] MEDS: ATORVASTATIN 40 MG TABLET PO SCH (20:29)
[2018-06-04] MEDS: FAMOTIDINE 20 MG TABLET PO SCH (20:29)
[2018-06-05 01:16] VITALS: BP 127/85
[2018-06-05] MEDS: SODIUM CHLORIDE 0.9% 1,000 ML IV SCH ×2 (03:29→08:59)
[2018-06-05 04:00] LABS: ALANINE AMINOTRANSFERASE 23 U/L (12-78); ALBUMIN 2.7 g/dL (3.4-5.0); ANION GAP 10 mmol/L (5-15); CALCIUM 8.6 mg/dL (8.5-10.1); CHLORIDE 105 mmol/L (98-107); CREATININE 1.28 mg/dL (0.7-1.3); MEAN CORPUSCULAR HGB CONC 33.3 g/dL (33.2-36.2); MEAN CORPUSCULAR VOLUME 90.1 fL (81-97); RED CELL DISTRIBUTION WIDTH 13.7 % (9.4-14.8)
[2018-06-05 04:02] LABS: ALKALINE PHOSPHATASE 71 U/L (45-117); BILIRUBIN,TOTAL 0.3 mg/dL (0.2-1.0); TOTAL PROTEIN 6.7 g/dL (6.4-8.2)
[2018-06-05] MEDS: metroNIDAZOLE 500 MG TABLET PO SCH ×3 (04:40→21:57)
[2018-06-05 05:48] LABS: MEAN PLATELET VOLUME 10.4 fL (7.4-10.4)
[2018-06-05 05:49] LABS: BASOPHILS # (AUTO) 0.05 x10^3/uL (0-0.1); BASOPHILS % (AUTO) 1 % (0-1); EOSINOPHILS # (AUTO) 0.29 x10^3/uL (0-0.4); EOSINOPHILS % (AUTO) 4 % (1-7); LYMPHOCYTES # (AUTO) 2.31 x10^3/uL (1-3.4); LYMPHOCYTES % (AUTO) 31 % (22-44); MD SCAN; MONOCYTES # (AUTO) 0.64 x10^3/uL (0.2-0.8); MONOCYTES % (AUTO) 9 % (2-9); NEUTROPHILS # (AUTO) 4.26 x10^3/uL (1.8-6.8); NEUTROPHILS % (AUTO) 56 % (42-75)
[2018-06-05 05:53] LABS: PLATELET COUNT 19 x10^3/uL (130-400)
[2018-06-05] MEDS: METOPROLOL TARTRATE 25 MG TABLET PO SCH ×2 (06:16→18:27)
[2018-06-05 08:53] VITALS: BP 107/70
[2018-06-05] MEDS: INSULIN LISPRO 100 UNITS/ML, PEN SQ-INSULIN SCH ×4 (08:57→21:58)
[2018-06-05] MEDS: SODIUM CHLORIDE FLUSH 10ML SYR IVF SCH ×2 (08:59→21:00)
[2018-06-05] MEDS: LOSARTAN 50MG TABLET PO SCH (10:45)
[2018-06-05] MEDS: CHLORTHALIDONE 25 MG TABLET PO SCH (10:45)
[2018-06-05] MEDS: LACTOBACILLUS CHEW TABLET PO SCH ×3 (10:45→21:57)
[2018-06-05] MEDS: POTASSIUM CHLORIDE 20 MEQ PACKET PO SCH ×2 (10:45→16:43)
[2018-06-05] MEDS: INSULIN GLARGINE 100 UNITS/ML, PEN SQ-INSULIN SCH ×2 (10:46→21:58)
[2018-06-05] MEDS: CEFTRIAXONE 2 GM in SODIUM CHLORIDE 0.9% 50 ML IV SCH (12:07)
[2018-06-05 12:24] VITALS: BP 126/82
[2018-06-05 18:19] LABS: MEAN CORPUSCULAR HEMOGLOBIN 30.6 pg (27.5-34.5); MEAN CORPUSCULAR HGB CONC 33.8 g/dL (33.2-36.2); MEAN CORPUSCULAR VOLUME 90.4 fL (81-97); MEAN PLATELET VOLUME 10.4 fL (7.4-10.4); RED BLOOD COUNT 4.12 x10^6/uL (4.38-5.82); RED CELL DISTRIBUTION WIDTH 13.9 % (9.4-14.8)
[2018-06-05 18:23] LABS: HEMOGRAM NOTE RECHECKED; PLATELET COUNT 19 x10^3/uL (130-400)
[2018-06-05 18:40] LABS: BASOPHILS # (AUTO) 0.05 x10^3/uL (0-0.1); BASOPHILS % (AUTO) 1 % (0-1); EOSINOPHILS # (AUTO) 0.29 x10^3/uL (0-0.4); EOSINOPHILS % (AUTO) 4 % (1-7); LYMPHOCYTES # (AUTO) 2.46 x10^3/uL (1-3.4); LYMPHOCYTES % (AUTO) 30 % (22-44); MD SCAN; MONOCYTES # (AUTO) 0.64 x10^3/uL (0.2-0.8); MONOCYTES % (AUTO) 8 % (2-9); NEUTROPHILS # (AUTO) 4.69 x10^3/uL (1.8-6.8); NEUTROPHILS % (AUTO) 58 % (42-75)
[2018-06-05 20:41] VITALS: BP 104/67
[2018-06-05] MEDS: FAMOTIDINE 20 MG TABLET PO SCH (21:57)
[2018-06-05] MEDS: ATORVASTATIN 40 MG TABLET PO SCH (21:58)
[2018-06-06 00:41] VITALS: BP 121/73
[2018-06-06] MEDS: SODIUM CHLORIDE 0.9% 1,000 ML IV SCH (05:13)
[2018-06-06] MEDS: metroNIDAZOLE 500 MG TABLET PO SCH ×3 (05:13→20:08)
[2018-06-06] MEDS: METOPROLOL TARTRATE 25 MG TABLET PO SCH ×2 (05:14→17:51)
[2018-06-06 05:46] LABS: ALBUMIN 2.9 g/dL (3.4-5.0); ANION GAP 9 mmol/L (5-15); CALCIUM 9.2 mg/dL (8.5-10.1); CHLORIDE 106 mmol/L (98-107)
[2018-06-06 05:49] LABS: ALANINE AMINOTRANSFERASE 23 U/L (12-78); ALKALINE PHOSPHATASE 72 U/L (45-117); BILIRUBIN,TOTAL 0.3 mg/dL (0.2-1.0); CREATININE 1.26 mg/dL (0.7-1.3); TOTAL PROTEIN 6.8 g/dL (6.4-8.2)
[2018-06-06 06:06] LABS: MEAN CORPUSCULAR HEMOGLOBIN 30.3 pg (27.5-34.5); MEAN CORPUSCULAR HGB CONC 33.7 g/dL (33.2-36.2); MEAN CORPUSCULAR VOLUME 90.2 fL (81-97); MEAN PLATELET VOLUME 10.6 fL (7.4-10.4); RED BLOOD COUNT 4.14 x10^6/uL (4.38-5.82); RED CELL DISTRIBUTION WIDTH 14.1 % (9.4-14.8)
[2018-06-06 06:11] LABS: PLATELET COUNT 25 x10^3/uL (130-400)
[2018-06-06 06:26] LABS: MD SCAN
[2018-06-06 06:27] LABS: BASOPHILS # (AUTO) 0.05 x10^3/uL (0-0.1); BASOPHILS % (AUTO) 1 % (0-1); EOSINOPHILS # (AUTO) 0.31 x10^3/uL (0-0.4); EOSINOPHILS % (AUTO) 4 % (1-7); LYMPHOCYTES # (AUTO) 2.72 x10^3/uL (1-3.4); LYMPHOCYTES % (AUTO) 31 % (22-44); MONOCYTES # (AUTO) 0.74 x10^3/uL (0.2-0.8); MONOCYTES % (AUTO) 9 % (2-9); NEUTROPHILS # (AUTO) 4.96 x10^3/uL (1.8-6.8); NEUTROPHILS % (AUTO) 56 % (42-75)
[2018-06-06 07:19] VITALS: BP 127/91
[2018-06-06] MEDS: CHLORTHALIDONE 25 MG TABLET PO SCH (08:40)
[2018-06-06] MEDS: LOSARTAN 50MG TABLET PO SCH (08:41)
[2018-06-06] MEDS: LACTOBACILLUS CHEW TABLET PO SCH ×3 (08:41→20:08)
[2018-06-06] MEDS: INSULIN GLARGINE 100 UNITS/ML, PEN SQ-INSULIN SCH ×2 (08:42→20:09)
[2018-06-06] MEDS: INSULIN LISPRO 100 UNITS/ML, PEN SQ-INSULIN SCH ×4 (08:42→20:10)
[2018-06-06] MEDS: POTASSIUM CHLORIDE 20 MEQ PACKET PO SCH ×2 (08:43→16:40)
[2018-06-06] MEDS: SODIUM CHLORIDE FLUSH 10ML SYR IVF SCH ×2 (08:46→20:10)
[2018-06-06] MEDS ORDERED: PANTOPRAZOLE 40 MG IV IVPush SCH (11:00)
[2018-06-06 13:10] VITALS: BP 114/69
[2018-06-06] MEDS: CEFTRIAXONE 2 GM in SODIUM CHLORIDE 0.9% 50 ML IV SCH (14:05)
[2018-06-06] MEDS: PANTOPROZOLE 40MG TABLET PO SCH (17:50)
[2018-06-06 19:20] VITALS: BP 131/88
[2018-06-06] MEDS: ATORVASTATIN 40 MG TABLET PO SCH (20:08)
[2018-06-06 21:26] LABS: OCCULT BLOOD POSITIVE (NEGATIVE)
[2018-06-07] MEDS: SODIUM CHLORIDE 0.9% 1,000 ML IV SCH ×3 (00:05→23:12)
[2018-06-07 01:18] VITALS: BP 127/62
[2018-06-07] MEDS: metroNIDAZOLE 500 MG TABLET PO SCH ×3 (05:02→20:09)
[2018-06-07] MEDS: METOPROLOL TARTRATE 25 MG TABLET PO SCH ×2 (05:03→16:46)
[2018-06-07 05:25] LABS: MEAN CORPUSCULAR HEMOGLOBIN 30.4 pg (27.5-34.5); MEAN CORPUSCULAR HGB CONC 33.6 g/dL (33.2-36.2); MEAN CORPUSCULAR VOLUME 90.5 fL (81-97); RED BLOOD COUNT 4.22 x10^6/uL (4.38-5.82); RED CELL DISTRIBUTION WIDTH 14.3 % (9.4-14.8)
[2018-06-07 05:31] LABS: ALANINE AMINOTRANSFERASE 25 U/L (12-78); ALBUMIN 2.9 g/dL (3.4-5.0); ANION GAP 9 mmol/L (5-15); CALCIUM 8.9 mg/dL (8.5-10.1); CHLORIDE 104 mmol/L (98-107)
[2018-06-07 05:34] LABS: ALKALINE PHOSPHATASE 74 U/L (45-117); BILIRUBIN,TOTAL 0.4 mg/dL (0.2-1.0); CREATININE 1.31 mg/dL (0.7-1.3); TOTAL PROTEIN 6.9 g/dL (6.4-8.2)
[2018-06-07 06:05] LABS: BASOPHILS # (AUTO) 0.06 x10^3/uL (0-0.1); BASOPHILS % (AUTO) 1 % (0-1); EOSINOPHILS # (AUTO) 0.26 x10^3/uL (0-0.4); EOSINOPHILS % (AUTO) 4 % (1-7); LYMPHOCYTES # (AUTO) 2.35 x10^3/uL (1-3.4); LYMPHOCYTES % (AUTO) 32 % (22-44); MD SCAN; MEAN PLATELET VOLUME 11.1 fL (7.4-10.4); MONOCYTES # (AUTO) 0.64 x10^3/uL (0.2-0.8); MONOCYTES % (AUTO) 9 % (2-9); NEUTROPHILS # (AUTO) 4.09 x10^3/uL (1.8-6.8); NEUTROPHILS % (AUTO) 55 % (42-75)
[2018-06-07 07:16] LABS: PLATELET COUNT 38 x10^3/uL (130-400)
[2018-06-07 07:19] VITALS: BP 119/77
[2018-06-07] MEDS: POTASSIUM CHLORIDE 20 MEQ PACKET PO SCH ×2 (07:46→16:45)
[2018-06-07] MEDS: PANTOPROZOLE 40MG TABLET PO SCH ×2 (07:46→16:45)
[2018-06-07] MEDS: LACTOBACILLUS CHEW TABLET PO SCH ×3 (07:46→20:09)
[2018-06-07] MEDS: CHLORTHALIDONE 25 MG TABLET PO SCH (07:47)
[2018-06-07] MEDS: LOSARTAN 50MG TABLET PO SCH (07:47)
[2018-06-07] MEDS: SODIUM CHLORIDE FLUSH 10ML SYR IVF SCH ×2 (07:48→20:09)
[2018-06-07] MEDS: INSULIN GLARGINE 100 UNITS/ML, PEN SQ-INSULIN SCH ×2 (07:56→20:11)
[2018-06-07] MEDS: INSULIN LISPRO 100 UNITS/ML, PEN SQ-INSULIN SCH ×4 (07:57→20:12)
[2018-06-07 12:57] VITALS: BP 94/65
[2018-06-07] MEDS: CEFTRIAXONE 2 GM in SODIUM CHLORIDE 0.9% 50 ML IV SCH (13:10)
[2018-06-07 19:22] VITALS: BP 124/81
[2018-06-07] MEDS: ATORVASTATIN 40 MG TABLET PO SCH (20:09)
[2018-06-08 04:23] VITALS: BP 120/84
[2018-06-08] MEDS: METOPROLOL TARTRATE 25 MG TABLET PO SCH ×2 (05:00→16:10)
[2018-06-08] MEDS: metroNIDAZOLE 500 MG TABLET PO SCH ×3 (05:00→22:46)
[2018-06-08 05:19] LABS: BASOPHILS # (AUTO) 0.04 x10^3/uL (0-0.1); BASOPHILS % (AUTO) 1 % (0-1); EOSINOPHILS # (AUTO) 0.29 x10^3/uL (0-0.4); EOSINOPHILS % (AUTO) 4 % (1-7); LYMPHOCYTES # (AUTO) 2.11 x10^3/uL (1-3.4); LYMPHOCYTES % (AUTO) 26 % (22-44); MD NO; MEAN CORPUSCULAR HEMOGLOBIN 30.1 pg (27.5-34.5); MEAN CORPUSCULAR HGB CONC 33.6 g/dL (33.2-36.2); MEAN CORPUSCULAR VOLUME 89.4 fL (81-97); MEAN PLATELET VOLUME 10.5 fL (7.4-10.4); MONOCYTES # (AUTO) 0.64 x10^3/uL (0.2-0.8); MONOCYTES % (AUTO) 8 % (2-9); NEUTROPHILS # (AUTO) 4.94 x10^3/uL (1.8-6.8); NEUTROPHILS % (AUTO) 62 % (42-75); PLATELET COUNT 50 x10^3/uL (130-400); RED CELL DISTRIBUTION WIDTH 13.7 % (9.4-14.8)
[2018-06-08 05:21] LABS: CALCIUM 8.5 mg/dL (8.5-10.1); CHLORIDE 107 mmol/L (98-107)
[2018-06-08 05:28] LABS: ALANINE AMINOTRANSFERASE 34 U/L (12-78); ALBUMIN 2.8 g/dL (3.4-5.0); ALKALINE PHOSPHATASE 69 U/L (45-117); ANION GAP 9 mmol/L (5-15); BILIRUBIN,TOTAL 0.3 mg/dL (0.2-1.0); TOTAL PROTEIN 6.6 g/dL (6.4-8.2)
[2018-06-08 07:10] VITALS: BP 113/74
[2018-06-08] MEDS: LACTOBACILLUS CHEW TABLET PO SCH ×3 (07:53→20:20)
[2018-06-08] MEDS: CHLORTHALIDONE 25 MG TABLET PO SCH (07:53)
[2018-06-08] MEDS: POTASSIUM CHLORIDE 20 MEQ PACKET PO SCH ×2 (07:53→16:10)
[2018-06-08] MEDS: LOSARTAN 50MG TABLET PO SCH (07:54)
[2018-06-08] MEDS: INSULIN LISPRO 100 UNITS/ML, PEN SQ-INSULIN SCH ×4 (07:54→20:25)
[2018-06-08] MEDS: SODIUM CHLORIDE 0.9% 1,000 ML IV SCH ×3 (07:54→22:41)
[2018-06-08] MEDS: PANTOPROZOLE 40MG TABLET PO SCH (07:54)
[2018-06-08] MEDS: INSULIN GLARGINE 100 UNITS/ML, PEN SQ-INSULIN SCH ×2 (07:55→20:24)
[2018-06-08] MEDS: SODIUM CHLORIDE FLUSH 10ML SYR IVF SCH ×2 (08:00→21:00)
[2018-06-08] MEDS: CEFTRIAXONE 2 GM in SODIUM CHLORIDE 0.9% 50 ML IV SCH (12:27)
[2018-06-08 13:11] VITALS: BP 133/87
[2018-06-08 20:21] VITALS: BP 106/66
[2018-06-08] MEDS: ATORVASTATIN 40 MG TABLET PO SCH (20:21)
[2018-06-09 01:27] VITALS: BP 123/74
[2018-06-09 02:16] LABS: ALANINE AMINOTRANSFERASE 31 U/L (12-78); ALBUMIN 2.8 g/dL (3.4-5.0); ANION GAP 10 mmol/L (5-15); CALCIUM 8.5 mg/dL (8.5-10.1); CHLORIDE 108 mmol/L (98-107); CREATININE 1.16 mg/dL (0.7-1.3)
[2018-06-09 02:18] LABS: ALKALINE PHOSPHATASE 64 U/L (45-117); BILIRUBIN,TOTAL 0.3 mg/dL (0.2-1.0); TOTAL PROTEIN 6.5 g/dL (6.4-8.2)
[2018-06-09 02:19] LABS: MEAN CORPUSCULAR HEMOGLOBIN 29.2 pg (27.5-34.5); MEAN CORPUSCULAR HGB CONC 32.3 g/dL (33.2-36.2); MEAN CORPUSCULAR VOLUME 90.5 fL (81-97); RED BLOOD COUNT 4.09 x10^6/uL (4.38-5.82); RED CELL DISTRIBUTION WIDTH 14.1 % (9.4-14.8)
[2018-06-09 02:51] LABS: BASOPHILS # (AUTO) 0.07 x10^3/uL (0-0.1); BASOPHILS % (AUTO) 1 % (0-1); EOSINOPHILS # (AUTO) 0.27 x10^3/uL (0-0.4); EOSINOPHILS % (AUTO) 4 % (1-7); LYMPHOCYTES # (AUTO) 2.18 x10^3/uL (1-3.4); LYMPHOCYTES % (AUTO) 30 % (22-44); MD SCAN; MEAN PLATELET VOLUME 10.4 fL (7.4-10.4); MONOCYTES # (AUTO) 0.62 x10^3/uL (0.2-0.8); MONOCYTES % (AUTO) 9 % (2-9); NEUTROPHILS # (AUTO) 4.16 x10^3/uL (1.8-6.8); NEUTROPHILS % (AUTO) 57 % (42-75); PLATELET COUNT 68 x10^3/uL (130-400)
[2018-06-09] MEDS: SODIUM CHLORIDE 0.9% 1,000 ML IV SCH (05:00)
[2018-06-09] MEDS: metroNIDAZOLE 500 MG TABLET PO SCH ×3 (06:03→20:35)
[2018-06-09] MEDS: METOPROLOL TARTRATE 25 MG TABLET PO SCH ×2 (06:04→17:43)
[2018-06-09] MEDS ORDERED: SODIUM CHLORIDE 0.9% 1,000 ML IV SCH (07:00)
[2018-06-09 07:15] VITALS: BP 133/86
[2018-06-09] MEDS: INSULIN LISPRO 100 UNITS/ML, PEN SQ-INSULIN SCH ×4 (07:24→20:40)
[2018-06-09] MEDS: POTASSIUM CHLORIDE 20 MEQ PACKET PO SCH ×2 (09:47→17:43)
[2018-06-09] MEDS: LACTOBACILLUS CHEW TABLET PO SCH ×3 (09:47→20:35)
[2018-06-09] MEDS: PANTOPROZOLE 40MG TABLET PO SCH (09:48)
[2018-06-09] MEDS: SODIUM CHLORIDE FLUSH 10ML SYR IVF SCH ×2 (09:48→20:40)
[2018-06-09] MEDS: LOSARTAN 50MG TABLET PO SCH (09:48)
[2018-06-09] MEDS: CHLORTHALIDONE 25 MG TABLET PO SCH (09:48)
[2018-06-09] MEDS: INSULIN GLARGINE 100 UNITS/ML, PEN SQ-INSULIN SCH ×2 (09:49→20:38)
[2018-06-09] MEDS: CEFTRIAXONE 2 GM in SODIUM CHLORIDE 0.9% 50 ML IV SCH (12:12)
[2018-06-09 13:01] VITALS: BP 107/70
[2018-06-09 19:05] VITALS: BP 113/73
[2018-06-09] MEDS: ATORVASTATIN 40 MG TABLET PO SCH (20:35)
[2018-06-10 02:38] VITALS: BP 125/93
[2018-06-10] MEDS: metroNIDAZOLE 500 MG TABLET PO SCH ×3 (05:43→22:17)
[2018-06-10] MEDS: METOPROLOL TARTRATE 25 MG TABLET PO SCH ×2 (05:43→17:32)
[2018-06-10 06:14] LABS: BASOPHILS # (AUTO) 0.06 x10^3/uL (0-0.1); BASOPHILS % (AUTO) 1 % (0-1); EOSINOPHILS # (AUTO) 0.19 x10^3/uL (0-0.4); EOSINOPHILS % (AUTO) 2 % (1-7); LYMPHOCYTES # (AUTO) 2.42 x10^3/uL (1-3.4); LYMPHOCYTES % (AUTO) 25 % (22-44); MD NO; MEAN CORPUSCULAR HEMOGLOBIN 30.4 pg (27.5-34.5); MEAN CORPUSCULAR HGB CONC 33.5 g/dL (33.2-36.2); MEAN CORPUSCULAR VOLUME 90.7 fL (81-97); MEAN PLATELET VOLUME 10.1 fL (7.4-10.4); MONOCYTES # (AUTO) 0.62 x10^3/uL (0.2-0.8); MONOCYTES % (AUTO) 6 % (2-9); NEUTROPHILS # (AUTO) 6.41 x10^3/uL (1.8-6.8); NEUTROPHILS % (AUTO) 66 % (42-75); PLATELET COUNT 115 x10^3/uL (130-400); RED BLOOD COUNT 4.67 x10^6/uL (4.38-5.82)
[2018-06-10 06:25] LABS: ANION GAP 11 mmol/L (5-15); CALCIUM 9.6 mg/dL (8.5-10.1); CHLORIDE 108 mmol/L (98-107); CREATININE 1.28 mg/dL (0.7-1.3)
[2018-06-10] MEDS: INSULIN LISPRO 100 UNITS/ML, PEN SQ-INSULIN SCH ×4 (07:00→21:22)
[2018-06-10 07:19] VITALS: BP 123/89
[2018-06-10] MEDS: POTASSIUM CHLORIDE 20 MEQ PACKET PO SCH ×2 (09:33→17:32)
[2018-06-10] MEDS: LACTOBACILLUS CHEW TABLET PO SCH ×3 (09:33→21:22)
[2018-06-10] MEDS: LOSARTAN 50MG TABLET PO SCH (09:34)
[2018-06-10] MEDS: CHLORTHALIDONE 25 MG TABLET PO SCH (09:34)
[2018-06-10] MEDS: PANTOPROZOLE 40MG TABLET PO SCH (09:35)
[2018-06-10] MEDS: SODIUM CHLORIDE FLUSH 10ML SYR IVF SCH ×2 (09:36→21:19)
[2018-06-10] MEDS: INSULIN GLARGINE 100 UNITS/ML, PEN SQ-INSULIN SCH ×2 (10:15→21:23)
[2018-06-10] MEDS: CEFTRIAXONE 2 GM in SODIUM CHLORIDE 0.9% 50 ML IV SCH (12:17)
[2018-06-10] MEDS: ENOXAPARIN 40 MG/0.4 ML SQ SCH (12:19)
[2018-06-10 13:28] VITALS: BP 105/71
[2018-06-10 14:21] VITALS: BP 110/70
[2018-06-10 17:33] VITALS: BP 99/64
[2018-06-10 20:11] VITALS: BP 116/71
[2018-06-10] MEDS: ATORVASTATIN 40 MG TABLET PO SCH (21:22)
[2018-06-11 03:20] VITALS: BP 108/71
[2018-06-11] MEDS: metroNIDAZOLE 500 MG TABLET PO SCH ×3 (06:51→22:12)
[2018-06-11] MEDS: METOPROLOL TARTRATE 25 MG TABLET PO SCH ×2 (06:51→18:00)
[2018-06-11 08:11] VITALS: BP 116/74
[2018-06-11] MEDS: CHLORTHALIDONE 25 MG TABLET PO SCH (08:27)
[2018-06-11] MEDS: LACTOBACILLUS CHEW TABLET PO SCH ×3 (08:27→20:36)
[2018-06-11] MEDS: PANTOPROZOLE 40MG TABLET PO SCH (08:28)
[2018-06-11] MEDS: LOSARTAN 50MG TABLET PO SCH (08:28)
[2018-06-11] MEDS: SODIUM CHLORIDE FLUSH 10ML SYR IVF SCH ×2 (08:34→20:36)
[2018-06-11] MEDS: INSULIN LISPRO 100 UNITS/ML, PEN SQ-INSULIN SCH ×4 (08:37→20:37)
[2018-06-11] MEDS: INSULIN GLARGINE 100 UNITS/ML, PEN SQ-INSULIN SCH ×2 (08:37→20:36)
[2018-06-11] MEDS: ENOXAPARIN 40 MG/0.4 ML SQ SCH (12:42)
[2018-06-11] MEDS: CEFTRIAXONE 2 GM in SODIUM CHLORIDE 0.9% 50 ML IV SCH (12:43)
[2018-06-11 14:00] VITALS: BP 111/72
[2018-06-11 18:10] VITALS: BP 92/58
[2018-06-11 19:38] VITALS: BP 97/65
[2018-06-11] MEDS: ATORVASTATIN 40 MG TABLET PO SCH (20:36)
[2018-06-12 01:44] VITALS: BP 104/68
[2018-06-12] MEDS: metroNIDAZOLE 500 MG TABLET PO SCH ×3 (05:18→20:53)
[2018-06-12] MEDS: METOPROLOL TARTRATE 25 MG TABLET PO SCH ×2 (05:18→17:42)
[2018-06-12 05:45] LABS: BASOPHILS # (AUTO) 0.05 x10^3/uL (0-0.1); BASOPHILS % (AUTO) 1 % (0-1); EOSINOPHILS % (AUTO) 3 % (1-7); LYMPHOCYTES # (AUTO) 2.17 x10^3/uL (1-3.4); LYMPHOCYTES % (AUTO) 27 % (22-44); MD NO; MEAN CORPUSCULAR HEMOGLOBIN 30.1 pg (27.5-34.5); MEAN CORPUSCULAR HGB CONC 33.4 g/dL (33.2-36.2); MEAN PLATELET VOLUME 9.4 fL (7.4-10.4); MONOCYTES # (AUTO) 0.71 x10^3/uL (0.2-0.8); MONOCYTES % (AUTO) 9 % (2-9); NEUTROPHILS % (AUTO) 61 % (42-75); PLATELET COUNT 132 x10^3/uL (130-400); RED BLOOD COUNT 4.33 x10^6/uL (4.38-5.82); RED CELL DISTRIBUTION WIDTH 14.4 % (9.4-14.8)
[2018-06-12 05:52] LABS: ALBUMIN 3.1 g/dL (3.4-5.0); ANION GAP 9 mmol/L (5-15); CHLORIDE 105 mmol/L (98-107)
[2018-06-12 05:56] LABS: ALANINE AMINOTRANSFERASE 29 U/L (12-78); ALKALINE PHOSPHATASE 63 U/L (45-117); BILIRUBIN,TOTAL 0.4 mg/dL (0.2-1.0); CREATININE 1.31 mg/dL (0.7-1.3); TOTAL PROTEIN 6.9 g/dL (6.4-8.2)
[2018-06-12] MEDS: INSULIN LISPRO 100 UNITS/ML, PEN SQ-INSULIN SCH ×4 (07:00→21:03)
[2018-06-12 07:02] VITALS: BP 112/79
[2018-06-12] MEDS: LACTOBACILLUS CHEW TABLET PO SCH ×3 (07:32→20:53)
[2018-06-12] MEDS: PANTOPROZOLE 40MG TABLET PO SCH (07:32)
[2018-06-12] MEDS: CHLORTHALIDONE 25 MG TABLET PO SCH (07:33)
[2018-06-12] MEDS: LOSARTAN 50MG TABLET PO SCH (07:33)
[2018-06-12] MEDS: SODIUM CHLORIDE FLUSH 10ML SYR IVF SCH ×2 (07:33→20:53)
[2018-06-12] MEDS: INSULIN GLARGINE 100 UNITS/ML, PEN SQ-INSULIN SCH ×2 (07:41→21:03)
[2018-06-12] MEDS: ENOXAPARIN 40 MG/0.4 ML SQ SCH (12:59)
[2018-06-12] MEDS: CEFTRIAXONE 2 GM in SODIUM CHLORIDE 0.9% 50 ML IV SCH (12:59)
[2018-06-12 14:31] VITALS: BP 96/64
[2018-06-12 17:00] VITALS: BP 123/66
[2018-06-12 19:42] VITALS: BP 118/62
[2018-06-12] MEDS: ATORVASTATIN 40 MG TABLET PO SCH (20:53)
[2018-06-13 02:50] VITALS: BP 100/67
[2018-06-13] MEDS: METOPROLOL TARTRATE 25 MG TABLET PO SCH (06:00)
[2018-06-13] MEDS: metroNIDAZOLE 500 MG TABLET PO SCH (06:17)
[2018-06-13] MEDS ORDERED: LOSA50TA2 PO (07:10)
[2018-06-13] MEDS ORDERED: METO25TA35 PO (07:10)
[2018-06-13] MEDS ORDERED: CHLO25TA PO (07:10)
[2018-06-13] MEDS ORDERED: INSU100I11 SQ-INSULIN (07:10)
[2018-06-13] MEDS ORDERED: METR500T PO (07:10)
[2018-06-13] MEDS ORDERED: INSU100I13 SQ-INSULIN ×2 (07:10)
[2018-06-13] MEDS: SODIUM CHLORIDE FLUSH 10ML SYR IVF SCH (09:23)
[2018-06-13] MEDS: PANTOPROZOLE 40MG TABLET PO SCH (09:24)
[2018-06-13] MEDS: LACTOBACILLUS CHEW TABLET PO SCH (09:24)
[2018-06-13] MEDS: LOSARTAN 50MG TABLET PO SCH (09:24)
[2018-06-13] MEDS: CHLORTHALIDONE 25 MG TABLET PO SCH (09:24)
[2018-06-13] MEDS: INSULIN GLARGINE 100 UNITS/ML, PEN SQ-INSULIN SCH (09:25)
[2018-06-13] MEDS: INSULIN LISPRO 100 UNITS/ML, PEN SQ-INSULIN SCH (09:26)
[2018-06-13 09:37] VITALS: BP 136/83
[2018-06-13 09:55] VITALS: BP 130/90
[2018-06-13 10:08] VITALS: BP 108/73
[2018-06-13 10:23] VITALS: BP 108/71
[2018-06-13 10:38] VITALS: BP 111/76
[2018-06-13] MEDS ORDERED: CEFTRIAXONE PMX 2GM/50ML 50 ML IV SCH (12:30)
== END 2018-06-13 12:18 | disposition home or self-care (01) | DRG 602 ==
LOC: ED 16:24 → EDIP 16:25 → ED 17:00 → 3NW 18:00
PROVIDERS: ADMIT Family Medicine; ATTEND Hospitalist
PROC: 02HV33Z Insertion of Infusion Device into Superior Vena Cava, Percutaneous Approach (ICD-10-PCS; principal; 2018-05-31)
PROC: B5181ZA Fluoroscopy of Superior Vena Cava using Low Osmolar Contrast, Guidance (ICD-10-PCS; 2018-05-31)
PROC: 30233R1 Transfusion of Nonautologous Platelets into Peripheral Vein, Percutaneous Approach (ICD-10-PCS; 2018-06-03)
DX: L03.116 Cellulitis of left lower limb (principal); N17.0 Acute kidney failure with tubular necrosis; K29.71 Gastritis, unspecified, with bleeding; E87.1 Hypo-osmolality and hyponatremia; M86.172 Other acute osteomyelitis, left ankle and foot; E11.69 Type 2 diabetes mellitus with other specified complication; E11.65 Type 2 diabetes mellitus with hyperglycemia; Z79.4 Long term (current) use of insulin; I10 Essential (primary) hypertension; D64.9 Anemia, unspecified; D69.6 Thrombocytopenia, unspecified; E11.22 Type 2 diabetes mellitus with diabetic chronic kidney disease; E11.621 Type 2 diabetes mellitus with foot ulcer; E78.5 Hyperlipidemia, unspecified; E87.6 Hypokalemia; I12.9 Hypertensive chronic kidney disease with stage 1 through stage 4 chronic kidney disease, or unspecified chronic kidney disease; K21.9 Gastro-esophageal reflux disease without esophagitis; L97.529 Non-pressure chronic ulcer of other part of left foot with unspecified severity; N18.9 Chronic kidney disease, unspecified; Z79.899 Other long term (current) drug therapy; Z83.3 Family history of diabetes mellitus; L03.032 Cellulitis of left toe
CPT/HCPCS: 36415; 73660; 77001; 84145; 99285; J7042; S0028; 36569; 71045; 76937; 80048; 80053; 80061; 80202; 81001; 82040; 82272; 82436; 82542; 82570; 82962; 83036; 83605; 83615; 83735; 84100; 84133; 84300; 84443; 85025; 85049; 85379; 85384; 85610; 85651; 85730; 86022; 86140; 87040; 87070; 87075; 87147; 87205; 93922; 93970; 96361; 96374; 96375; G0378; J0295; J0696; J1335; J1644; J1650; J2543; J2997; J3370; C1751; C9113; J0360; J1815; J7030; J7040; J7050; P9035

== ENCOUNTER 2018-06-13 14:20 | Inpatient (IN) | payer MEDICAID ==
[~2018-06-13] VITALS: Ht 182.9 cm; Wt 91.0 kg
[~2018-06-13 14:20] MED LIST changes: +CHLO25TA PO; +INSU100I11 SQ-INSULIN; +INSU100I13 SQ-INSULIN; +LOSA50TA2 PO; +METO25TA35 PO; +METR500T PO
[2018-06-13 15:32] LABS: MEAN CORPUSCULAR HEMOGLOBIN 30.4 pg (27.5-34.5); MEAN CORPUSCULAR HGB CONC 33.6 g/dL (33.2-36.2); MEAN CORPUSCULAR VOLUME 90.5 fL (81-97); MEAN PLATELET VOLUME 9.4 fL (7.4-10.4); PLATELET COUNT 139 x10^3/uL (130-400); RED BLOOD COUNT 4.59 x10^6/uL (4.38-5.82); RED CELL DISTRIBUTION WIDTH 14.4 % (9.4-14.8)
[2018-06-13 15:40] LABS: ALBUMIN 3.4 g/dL (3.4-5.0); ANION GAP 12 mmol/L (5-15); CALCIUM 9.2 mg/dL (8.5-10.1); CHLORIDE 103 mmol/L (98-107); CREATININE 1.71 mg/dL (0.7-1.3)
[2018-06-13 15:43] LABS: TROPONIN I < 0.015 ng/mL (0.000-0.045)
[2018-06-13 16:09] LABS: BASOPHILS % (AUTO) 0 % (0-1); EOSINOPHILS # (AUTO) 0.02 x10^3/uL (0-0.4); EOSINOPHILS % (AUTO) 0 % (1-7); LYMPHOCYTES # (AUTO) 0.91 x10^3/uL (1-3.4); LYMPHOCYTES % (AUTO) 8 % (22-44); MD SCAN; MONOCYTES # (AUTO) 0.56 x10^3/uL (0.2-0.8); MONOCYTES % (AUTO) 5 % (2-9); NEUTROPHILS # (AUTO) 10.34 x10^3/uL (1.8-6.8); NEUTROPHILS % (AUTO) 87 % (42-75)
[2018-06-13] MEDS ORDERED: SODIUM CHLORIDE 0.9% 1,000ML IVBOLUS ONE ×2 (16:30→18:00)
[2018-06-13] MEDS ORDERED: ACETAMINOPHEN 325 MG TABLET PO PRN (19:30)
[2018-06-13] MEDS ORDERED: ONDANSETRON 2MG/ML, 2ML IVPush PRN (19:30)
[2018-06-13] MEDS ORDERED: LIDOCAINE-MPF 2%, 2ML ONE (20:12)
[2018-06-13] MEDS ORDERED: DIPH,PERTUSS(ACELL),TET VAC/PF 0.5 ML IM-VACC ONE ×2 (20:13→20:30)
[2018-06-13] MEDS ORDERED: LIDOCAINE 2%, 20ML INFIL ONE (20:30)
[2018-06-13 21:08] VITALS: BP_SYST 135; BP_SYST 98; BP_DIAS 68; BP_DIAS 95
[2018-06-13 21:12] VITALS: BP 90/58
[2018-06-13] MEDS ORDERED: ENOXAPARIN 30 MG/0.3 ML SQ SCH (21:30)
[2018-06-13] MEDS: SODIUM CHLORIDE 0.9% 1,000 ML IV SCH (21:40)
[2018-06-13] MEDS: ATORVASTATIN 40 MG TABLET PO SCH (21:41)
[2018-06-13] MEDS: PANTOPROZOLE 40MG TABLET PO SCH (21:41)
[2018-06-13] MEDS: metroNIDAZOLE 500 MG TABLET PO SCH (21:41)
[2018-06-13] MEDS: INSULIN GLARGINE 100 UNITS/ML, PEN SQ-INSULIN SCH (21:53)
[2018-06-13] MEDS: CEFTRIAXONE 2 GM in SODIUM CHLORIDE 0.9% 50 ML IV SCH (21:53)
[2018-06-14 02:22] VITALS: BP 115/73
[2018-06-14] MEDS: SODIUM CHLORIDE 0.9% 1,000 ML IV SCH ×3 (02:51→19:26)
[2018-06-14] MEDS: metroNIDAZOLE 500 MG TABLET PO SCH ×3 (04:42→20:43)
[2018-06-14 05:02] LABS: ANION GAP 9 mmol/L (5-15); CALCIUM 7.9 mg/dL (8.5-10.1); CHLORIDE 109 mmol/L (98-107)
[2018-06-14 06:48] VITALS: BP_SYST 144; BP_SYST 152; BP_SYST 94; BP_DIAS 67; BP_DIAS 92; BP_DIAS 93
[2018-06-14] MEDS: PANTOPROZOLE 40MG TABLET PO SCH ×2 (08:22→20:42)
[2018-06-14] MEDS: INSULIN GLARGINE 100 UNITS/ML, PEN SQ-INSULIN SCH ×2 (08:23→20:54)
[2018-06-14] MEDS ORDERED: POTASSIUM CHLORIDE 20 MEQ TAB.ER.PRT PO ONE (10:00)
[2018-06-14] MEDS ORDERED: MAGNESIUM SULFATE PMX 2GM/50ML 50 ML IV ONE (10:00)
[2018-06-14] MEDS ORDERED: POTASSIUM PHOSPHATE 22 MEQ in SODIUM CHLORIDE 0.9% 500 ML IV ONE (10:00)
[2018-06-14 12:03] VITALS: BP 136/88
[2018-06-14] MEDS ORDERED: PHARMACY MAY ADJ FOR RENAL FX MC PRN (13:00)
[2018-06-14 20:00] VITALS: BP 142/91
[2018-06-14 20:01] VITALS: BP 138/84
[2018-06-14 20:02] VITALS: BP 118/76
[2018-06-14] MEDS: ATORVASTATIN 40 MG TABLET PO SCH (20:42)
[2018-06-14] MEDS: CEFTRIAXONE 2 GM in SODIUM CHLORIDE 0.9% 50 ML IV SCH (20:43)
[2018-06-14] MEDS: ENOXAPARIN 40 MG/0.4 ML SQ SCH (20:51)
[2018-06-15] VITALS (7 sets, daily range): BP systolic 76–158; BP diastolic 50–96
[2018-06-15] MEDS: SODIUM CHLORIDE 0.9% 1,000 ML IV SCH ×3 (01:00→22:06)
[2018-06-15] MEDS: metroNIDAZOLE 500 MG TABLET PO SCH ×3 (04:57→22:04)
[2018-06-15 05:39] LABS: BASOPHILS # (AUTO) 0.05 x10^3/uL (0-0.1); BASOPHILS % (AUTO) 1 % (0-1); EOSINOPHILS # (AUTO) 0.21 x10^3/uL (0-0.4); EOSINOPHILS % (AUTO) 3 % (1-7); LYMPHOCYTES # (AUTO) 1.98 x10^3/uL (1-3.4); LYMPHOCYTES % (AUTO) 23 % (22-44); MD NO; MEAN CORPUSCULAR HEMOGLOBIN 30.7 pg (27.5-34.5); MEAN CORPUSCULAR HGB CONC 33.4 g/dL (33.2-36.2); MEAN CORPUSCULAR VOLUME 91.8 fL (81-97); MEAN PLATELET VOLUME 8.9 fL (7.4-10.4); MONOCYTES # (AUTO) 0.77 x10^3/uL (0.2-0.8); MONOCYTES % (AUTO) 9 % (2-9); NEUTROPHILS # (AUTO) 5.52 x10^3/uL (1.8-6.8); NEUTROPHILS % (AUTO) 65 % (42-75); PLATELET COUNT 139 x10^3/uL (130-400); RED BLOOD COUNT 3.88 x10^6/uL (4.38-5.82); RED CELL DISTRIBUTION WIDTH 14.6 % (9.4-14.8)
[2018-06-15 05:50] LABS: ANION GAP 9 mmol/L (5-15); CHLORIDE 110 mmol/L (98-107)
[2018-06-15] MEDS: PANTOPROZOLE 40MG TABLET PO SCH ×2 (08:27→22:04)
[2018-06-15] MEDS: INSULIN GLARGINE 100 UNITS/ML, PEN SQ-INSULIN SCH ×2 (08:27→22:06)
[2018-06-15] MEDS ORDERED: MAGNESIUM SULFATE PMX 2GM/50ML 50 ML IV ONE (09:00)
[2018-06-15] MEDS ORDERED: POTASSIUM CHLORIDE 20 MEQ TAB.ER.PRT PO ONE (09:00)
[2018-06-15] MEDS: NEUTRA PHOS K 250 MG TABLET PO SCH ×2 (09:54→22:04)
[2018-06-15] MEDS: METOPROLOL TARTRATE 25 MG TABLET PO SCH ×2 (09:54→17:54)
[2018-06-15] MEDS ORDERED: SODIUM CHLORIDE 0.9% 1,000 ML IV SCH (13:00)
[2018-06-15] MEDS: CEFTRIAXONE PMX 2GM/50ML 50 ML IV SCH (22:03)
[2018-06-15] MEDS: ATORVASTATIN 40 MG TABLET PO SCH (22:04)
[2018-06-15] MEDS: ENOXAPARIN 40 MG/0.4 ML SQ SCH (22:04)
[2018-06-16] VITALS (13 sets, daily range): BP systolic 67–163; BP diastolic 48–100
[2018-06-16] MEDS: metroNIDAZOLE 500 MG TABLET PO SCH ×3 (05:54→21:22)
[2018-06-16] MEDS: SODIUM CHLORIDE 0.9% 1,000 ML IV SCH (05:55)
[2018-06-16] MEDS: METOPROLOL TARTRATE 25 MG TABLET PO SCH ×2 (06:00→18:02)
[2018-06-16 06:34] LABS: ANION GAP 11 mmol/L (5-15); CALCIUM 8.3 mg/dL (8.5-10.1); CHLORIDE 106 mmol/L (98-107); CREATININE 1.09 mg/dL (0.7-1.3)
[2018-06-16] MEDS: PANTOPROZOLE 40MG TABLET PO SCH ×2 (10:48→21:22)
[2018-06-16] MEDS: INSULIN GLARGINE 100 UNITS/ML, PEN SQ-INSULIN SCH ×2 (10:49→21:24)
[2018-06-16] MEDS ORDERED: POTASSIUM CHLORIDE 20 MEQ TAB.ER.PRT PO ONE (11:00)
[2018-06-16] MEDS ORDERED: GADOBUTROL 7.5 MMOL/7.5 ML PFS ONE (15:19)
[2018-06-16] MEDS: ATORVASTATIN 40 MG TABLET PO SCH (21:22)
[2018-06-16] MEDS: ENOXAPARIN 40 MG/0.4 ML SQ SCH (21:23)
[2018-06-16] MEDS: CEFTRIAXONE PMX 2GM/50ML 50 ML IV SCH (21:25)
[2018-06-17] VITALS (8 sets, daily range): BP systolic 66–154; BP diastolic 45–91
[2018-06-17] MEDS: metroNIDAZOLE 500 MG TABLET PO SCH ×3 (05:00→23:11)
[2018-06-17] MEDS: METOPROLOL TARTRATE 25 MG TABLET PO SCH ×2 (05:00→18:07)
[2018-06-17 05:30] LABS: BASOPHILS # (AUTO) 0.04 x10^3/uL (0-0.1); BASOPHILS % (AUTO) 1 % (0-1); EOSINOPHILS # (AUTO) 0.25 x10^3/uL (0-0.4); EOSINOPHILS % (AUTO) 3 % (1-7); LYMPHOCYTES # (AUTO) 1.96 x10^3/uL (1-3.4); LYMPHOCYTES % (AUTO) 26 % (22-44); MD NO; MEAN CORPUSCULAR HEMOGLOBIN 30.5 pg (27.5-34.5); MEAN CORPUSCULAR HGB CONC 33.4 g/dL (33.2-36.2); MEAN CORPUSCULAR VOLUME 91.3 fL (81-97); MEAN PLATELET VOLUME 8.9 fL (7.4-10.4); MONOCYTES # (AUTO) 0.74 x10^3/uL (0.2-0.8); MONOCYTES % (AUTO) 10 % (2-9); NEUTROPHILS # (AUTO) 4.68 x10^3/uL (1.8-6.8); NEUTROPHILS % (AUTO) 61 % (42-75); PLATELET COUNT 194 x10^3/uL (130-400); RED CELL DISTRIBUTION WIDTH 14.9 % (9.4-14.8)
[2018-06-17 05:39] LABS: CHLORIDE 103 mmol/L (98-107)
[2018-06-17 05:47] LABS: ALANINE AMINOTRANSFERASE 20 U/L (12-78); ALBUMIN 2.9 g/dL (3.4-5.0); ALKALINE PHOSPHATASE 60 U/L (45-117); ANION GAP 9 mmol/L (5-15); BILIRUBIN,TOTAL 0.4 mg/dL (0.2-1.0); CALCIUM 8.7 mg/dL (8.5-10.1); CREATININE 1.12 mg/dL (0.7-1.3); TOTAL PROTEIN 6.9 g/dL (6.4-8.2)
[2018-06-17] MEDS: PANTOPROZOLE 40MG TABLET PO SCH ×2 (10:20→23:11)
[2018-06-17] MEDS: INSULIN GLARGINE 100 UNITS/ML, PEN SQ-INSULIN SCH ×2 (12:48→23:13)
[2018-06-17] MEDS ORDERED: POTASSIUM CHLORIDE 20 MEQ PACKET PO ONE (18:00)
[2018-06-17] MEDS: MIDODRINE 5 MG TABLET PO SCH ×2 (18:05→23:14)
[2018-06-17] MEDS ORDERED: SODIUM CHLORIDE 0.9% 1,000 ML IV ONE (18:30)
[2018-06-17] MEDS: CEFTRIAXONE PMX 2GM/50ML 50 ML IV SCH (23:11)
[2018-06-17] MEDS: ATORVASTATIN 40 MG TABLET PO SCH (23:11)
[2018-06-17] MEDS: ENOXAPARIN 40 MG/0.4 ML SQ SCH (23:13)
[2018-06-18] VITALS (9 sets, daily range): BP systolic 73–145; BP diastolic 45–91
[2018-06-18] MEDS: MIDODRINE 5 MG TABLET PO SCH ×3 (08:48→20:14)
[2018-06-18] MEDS: PANTOPROZOLE 40MG TABLET PO SCH ×2 (08:48→20:14)
[2018-06-18] MEDS: metroNIDAZOLE 500 MG TABLET PO SCH ×3 (08:48→23:09)
[2018-06-18] MEDS: INSULIN GLARGINE 100 UNITS/ML, PEN SQ-INSULIN SCH ×2 (08:49→20:13)
[2018-06-18] MEDS: ATORVASTATIN 40 MG TABLET PO SCH (20:15)
[2018-06-18] MEDS: ENOXAPARIN 40 MG/0.4 ML SQ SCH (20:35)
[2018-06-18] MEDS: CEFTRIAXONE PMX 2GM/50ML 50 ML IV SCH (23:09)
[2018-06-19 03:07] VITALS: BP 145/90
[2018-06-19 07:03] VITALS: BP 118/61
[2018-06-19] MEDS: metroNIDAZOLE 500 MG TABLET PO SCH ×3 (08:45→23:25)
[2018-06-19] MEDS: PANTOPROZOLE 40MG TABLET PO SCH ×2 (08:45→21:27)
[2018-06-19] MEDS: MIDODRINE 5 MG TABLET PO SCH ×3 (08:45→21:26)
[2018-06-19] MEDS: INSULIN GLARGINE 100 UNITS/ML, PEN SQ-INSULIN SCH ×2 (08:50→21:26)
[2018-06-19 09:41] VITALS: BP_SYST 155; BP_SYST 90; BP_SYST 93; BP_DIAS 49; BP_DIAS 63; BP_DIAS 93
[2018-06-19 14:28] VITALS: BP 135/88
[2018-06-19 20:00] VITALS: BP_SYST 143; BP_SYST 97; BP_DIAS 67; BP_DIAS 88; BP_DIAS 90
[2018-06-19] MEDS: ENOXAPARIN 40 MG/0.4 ML SQ SCH (21:26)
[2018-06-19] MEDS: ATORVASTATIN 40 MG TABLET PO SCH (21:27)
[2018-06-19] MEDS: CEFTRIAXONE PMX 2GM/50ML 50 ML IV SCH (23:25)
[2018-06-20] VITALS (9 sets, daily range): BP systolic 55–149; BP diastolic 36–100
[2018-06-20] MEDS: INSULIN GLARGINE 100 UNITS/ML, PEN SQ-INSULIN SCH ×2 (09:00→20:31)
[2018-06-20] MEDS: PANTOPROZOLE 40MG TABLET PO SCH ×2 (09:47→20:32)
[2018-06-20] MEDS: MIDODRINE 5 MG TABLET PO SCH (09:48)
[2018-06-20] MEDS: metroNIDAZOLE 500 MG TABLET PO SCH ×3 (09:48→23:50)
[2018-06-20] MEDS ORDERED: SODIUM CHLORIDE 0.9% 1,000 ML IV ONE (10:30)
[2018-06-20] MEDS: FLUDROCORTISONE 0.1 MG TABLET PO SCH (12:02)
[2018-06-20] MEDS: ENOXAPARIN 40 MG/0.4 ML SQ SCH (20:31)
[2018-06-20] MEDS: ATORVASTATIN 40 MG TABLET PO SCH (20:32)
[2018-06-20] MEDS: CEFTRIAXONE PMX 2GM/50ML 50 ML IV SCH (23:50)
[2018-06-21] VITALS (10 sets, daily range): BP systolic 84–159; BP diastolic 54–101
[2018-06-21] MEDS: metroNIDAZOLE 500 MG TABLET PO SCH ×3 (08:00→23:51)
[2018-06-21] MEDS: PANTOPROZOLE 40MG TABLET PO SCH ×2 (08:25→20:48)
[2018-06-21] MEDS: FLUDROCORTISONE 0.1 MG TABLET PO SCH (08:25)
[2018-06-21] MEDS: INSULIN GLARGINE 100 UNITS/ML, PEN SQ-INSULIN SCH ×2 (08:26→20:49)
[2018-06-21] MEDS: ATORVASTATIN 40 MG TABLET PO SCH (20:48)
[2018-06-21] MEDS: ENOXAPARIN 40 MG/0.4 ML SQ SCH (20:50)
[2018-06-21] MEDS: CEFTRIAXONE PMX 2GM/50ML 50 ML IV SCH (23:15)
[2018-06-22] VITALS (7 sets, daily range): BP systolic 81–165; BP diastolic 57–109
[2018-06-22] MEDS: metroNIDAZOLE 500 MG TABLET PO SCH ×2 (07:47→16:00)
[2018-06-22] MEDS: FLUDROCORTISONE 0.1 MG TABLET PO SCH (10:12)
[2018-06-22] MEDS: PANTOPROZOLE 40MG TABLET PO SCH ×2 (10:12→20:43)
[2018-06-22] MEDS: INSULIN GLARGINE 100 UNITS/ML, PEN SQ-INSULIN SCH ×2 (10:17→20:45)
[2018-06-22] MEDS: ATORVASTATIN 40 MG TABLET PO SCH (20:43)
[2018-06-22] MEDS: ENOXAPARIN 40 MG/0.4 ML SQ SCH (20:44)
[2018-06-22] MEDS: CEFTRIAXONE PMX 2GM/50ML 50 ML IV SCH (23:16)
[2018-06-23] VITALS (8 sets, daily range): BP systolic 62–158; BP diastolic 41–104
[2018-06-23] MEDS: metroNIDAZOLE 500 MG TABLET PO SCH ×3 (00:14→18:13)
[2018-06-23] MEDS: FLUDROCORTISONE 0.1 MG TABLET PO SCH (08:57)
[2018-06-23] MEDS: PANTOPROZOLE 40MG TABLET PO SCH ×2 (08:57→20:45)
[2018-06-23] MEDS: INSULIN GLARGINE 100 UNITS/ML, PEN SQ-INSULIN SCH ×2 (08:58→20:44)
[2018-06-23] MEDS ORDERED: MAGNESIUM SULFATE PMX 2GM/50ML 50 ML IV ONE (16:00)
[2018-06-23] MEDS: ENOXAPARIN 40 MG/0.4 ML SQ SCH (20:45)
[2018-06-23] MEDS: ATORVASTATIN 40 MG TABLET PO SCH (20:45)
[2018-06-23] MEDS: CEFTRIAXONE PMX 2GM/50ML 50 ML IV SCH (23:46)
[2018-06-24] VITALS (11 sets, daily range): BP systolic 69–154; BP diastolic 45–100
[2018-06-24] MEDS: metroNIDAZOLE 500 MG TABLET PO SCH ×4 (00:19→23:46)
[2018-06-24] MEDS: FLUDROCORTISONE 0.1 MG TABLET PO SCH (08:07)
[2018-06-24] MEDS: PANTOPROZOLE 40MG TABLET PO SCH ×2 (08:08→21:58)
[2018-06-24] MEDS: INSULIN GLARGINE 100 UNITS/ML, PEN SQ-INSULIN SCH ×2 (08:09→21:59)
[2018-06-24] MEDS: ATORVASTATIN 40 MG TABLET PO SCH (21:58)
[2018-06-24] MEDS: ENOXAPARIN 40 MG/0.4 ML SQ SCH (21:58)
[2018-06-24] MEDS: CEFTRIAXONE PMX 2GM/50ML 50 ML IV SCH (23:46)
[2018-06-25 03:59] VITALS: BP 134/82
[2018-06-25 04:28] VITALS: BP 134/82
[2018-06-25 06:08] LABS: CREATININE 1.04 mg/dL (0.7-1.3)
[2018-06-25 06:58] VITALS: BP 155/100
[2018-06-25 07:02] VITALS: BP 107/69
[2018-06-25 07:07] VITALS: BP 89/60
[2018-06-25] MEDS ORDERED: FLUD0.1T PO (07:45)
[2018-06-25] MEDS: metroNIDAZOLE 500 MG TABLET PO SCH (08:00)
[2018-06-25] MEDS: FLUDROCORTISONE 0.1 MG TABLET PO SCH (08:54)
[2018-06-25] MEDS: PANTOPROZOLE 40MG TABLET PO SCH (08:54)
[2018-06-25] MEDS: INSULIN GLARGINE 100 UNITS/ML, PEN SQ-INSULIN SCH (08:56)
[2018-06-25] MEDS: CEFTRIAXONE PMX 2GM/50ML 50 ML IV SCH (12:16)
[2018-06-25 12:24] VITALS: BP 152/97
== END 2018-06-25 14:24 | disposition home or self-care (01) | DRG 73 ==
LOC: ED 15:01 → EDIP 19:08 → 4WST 21:02
PROVIDERS: ADMIT Hospitalist; ATTEND Internal Medicine
PROC: 0HQ0XZZ Repair Scalp Skin, External Approach (ICD-10-PCS; principal; 2018-06-13)
PROC: 02HV33Z Insertion of Infusion Device into Superior Vena Cava, Percutaneous Approach (ICD-10-PCS; 2018-06-13)
DX: G90.8 Other disorders of autonomic nervous system (principal); N17.0 Acute kidney failure with tubular necrosis; M86.9 Osteomyelitis, unspecified; I95.1 Orthostatic hypotension; E86.9 Volume depletion, unspecified; E87.6 Hypokalemia; E83.39 Other disorders of phosphorus metabolism; E83.42 Hypomagnesemia; E11.9 Type 2 diabetes mellitus without complications; E86.0 Dehydration; I10 Essential (primary) hypertension; I35.8 Other nonrheumatic aortic valve disorders; Z79.4 Long term (current) use of insulin
CPT/HCPCS: 12001; 36415; 70553; 71045; 80048; 80053; 82040; 82533; 82565; 82962; 83735; 84100; 84443; 84484; 85025; 90715; 93005; 93306; 93880; 96360; 96361; 99285; A9585; G0378; J0696; J1650; J1815; J3475; J7030; J7040